=== PATIENT | female | born 1950 | race Caucasian/White ===

== ENCOUNTER 2020-09-18 10:34 | Inpatient (IN) | payer MEDICARE, BC ==
[2020-09-18] MEDS ORDERED: Insulin Regular, Human 100 Units/ML 3 ML Vial SUBCUT SCH (17:00)
[2020-09-18] MEDS ORDERED: Glucagon,Human Recombinant 1 MG Vial IM PRN ×3 (17:11→19:48)
[2020-09-18] MEDS ORDERED: 50% Dextrose in Water 50 ML Syringe IV PRN ×3 (17:11→19:48)
[2020-09-18] MEDS: buPROPion 150 MG Tab.SR PO SCH (20:19)
[2020-09-18] MEDS: Pregabalin 50 MG Cap PO SCH (20:20)
[2020-09-18] MEDS: Amitriptyline 25 MG Tab PO SCH (20:20)
[2020-09-18] MEDS: Pregabalin 100 MG Cap PO SCH (20:20)
[2020-09-18] MEDS: Simvastatin 40 MG Tab PO SCH (20:20)
[2020-09-19] MEDS: Levothyroxine 50 MCG Tab PO SCH (06:54)
[2020-09-19] MEDS ORDERED: Insulin Regular, Human 100 Units/ML 3 ML Vial SUBCUT SCH ×2 (07:00→11:30)
[2020-09-19] MEDS: Pregabalin 50 MG Cap PO SCH ×3 (07:51→19:15)
[2020-09-19] MEDS: Pregabalin 100 MG Cap PO SCH ×3 (07:51→19:15)
[2020-09-19] MEDS: Citalopram 10 MG Tab PO SCH (07:52)
[2020-09-19] MEDS: Aspirin 325 MG Tab PO SCH (07:52)
[2020-09-19] MEDS: buPROPion 150 MG Tab.SR PO SCH ×2 (07:52→19:14)
[2020-09-19] MEDS: Metoprolol Succinate 25 MG Tab.ER PO SCH (07:52)
[2020-09-19] MEDS: Fenofibrate 160 MG Tab PO SCH (07:52)
[2020-09-19] MEDS: Docusate Sodium 100 MG Cap PO SCH (07:52)
[2020-09-19] MEDS: Mupirocin Oint 22 GM Tube TOP SCH (07:53)
[2020-09-19] MEDS: SEMAGLUTIDE 2 MG/1.5 ML SUBCUT SCH (08:19)
[2020-09-19] MEDS: Insulin Lispro 100 Units/ML 3 ML Vial SUBCUT SCH ×7 (08:35→17:02)
[2020-09-19] MEDS: Insulin Glarg,Human.Rec.Analog 100 Unit/ML SUBCUT SCH (08:37)
--- NOTE | 2020-09-19 10:21 | HP ---
CHIEF COMPLAINT: 1. Uncontrolled diabetes. 2. Weakness. HISTORY: The patient is a 70-year-old female from the [facility] who comes to us for swing bed admission. She was admitted to [facility] with stage 3 chronic kidney disease with acute renal failure, uncontrolled diabetes and frequent falls. She was just getting weaker at home and ultimately she was admitted and given fluids to rebound her kidneys and sliding scale insulin controlled her diabetes. She is still very weak and unable to care for herself and she presents to [facility] for swing bed placement as her daughter, Michelle , is a nurse, works here. She apparently had an uneventful hospital course. She has been noncompliant with some of her Humalog and she takes significant amounts of insulin. PAST MEDICAL HISTORY: Includes a history of coronary artery disease; type 2 diabetes requiring insulin; history of diabetic peripheral neuropathy. She has a history of some mild dementia, hypothyroidism, hypertension and hyperlipidemia. PAST SURGICAL HISTORY: Includes an appendectomy, hysterectomy with oophorectomy. ALLERGIES: TO LISINOPRIL. CURRENT MEDICATIONS: See list. SOCIAL HISTORY: She is a nonsmoker, nondrinker. FAMILY HISTORY: Reviewed in the chart. Includes a history of diabetes in multiple family members. Her father had esophageal cancer. There is a strong family history of hypertension and heart disease. PHYSICAL EXAMINATION: GENERAL: The patient is lying in her bed. She is pleasant, alert and cooperative. Appears in no distress. HEENT: Grossly benign. NECK: Her neck appears supple. Veins are flat. LUNGS: Lung sounds appear clear in all guerin. CARDIAC: Tones are regular. ABDOMEN: Soft and nontender. EXTREMITIES: No peripheral edema is seen. Pulses are palpable. ASSESSMENT: 1. ACUTE SUPERIMPOSED ON CHRONIC RENAL FAILURE, STAGE 3, IMPROVED. 2. TYPE 2 DIABETES, REQUIRING INSULIN. 3. HYPERTENSION. 4. HYPERLIPIDEMIA. 5. HISTORY OF CORONARY ARTERY DISEASE. 6. DIABETIC PERIPHERAL NEUROPATHY. 7. FALLS AT HOME. 8. WEAKNESS. PLAN: Paola will be managed with physical therapy, sliding scale insulin for now and we will keep a close eye on her sugars and titrate appropriately. No other med changes. LM/MODL /[id number]
[2020-09-19] MEDS: Simvastatin 40 MG Tab PO SCH (19:15)
[2020-09-19] MEDS: Amitriptyline 25 MG Tab PO SCH (19:15)
[2020-09-19] MEDS ORDERED: Insulin Lispro 100 Units/ML 3 ML Vial SUBCUT STA (22:17)
[2020-09-20] MEDS: Levothyroxine 50 MCG Tab PO SCH (06:43)
[2020-09-20] MEDS: Citalopram 10 MG Tab PO SCH (07:29)
[2020-09-20] MEDS: Aspirin 325 MG Tab PO SCH (07:29)
[2020-09-20] MEDS: buPROPion 150 MG Tab.SR PO SCH ×2 (07:30→19:36)
[2020-09-20] MEDS: Metoprolol Succinate 25 MG Tab.ER PO SCH (07:30)
[2020-09-20] MEDS: Pregabalin 50 MG Cap PO SCH ×3 (07:30→19:36)
[2020-09-20] MEDS: Pregabalin 100 MG Cap PO SCH ×3 (07:30→19:36)
[2020-09-20] MEDS: Fenofibrate 160 MG Tab PO SCH (07:30)
[2020-09-20] MEDS: Docusate Sodium 100 MG Cap PO SCH (07:30)
[2020-09-20] MEDS: Insulin Glarg,Human.Rec.Analog 100 Unit/ML SUBCUT SCH (07:32)
[2020-09-20] MEDS: Insulin Lispro 100 Units/ML 3 ML Vial SUBCUT SCH ×6 (07:34→17:23)
[2020-09-20] MEDS: Mupirocin Oint 22 GM Tube TOP SCH (14:07)
[2020-09-20] MEDS: Amitriptyline 25 MG Tab PO SCH (19:35)
[2020-09-20] MEDS: Simvastatin 40 MG Tab PO SCH (19:36)
[2020-09-21] MEDS: buPROPion 150 MG Tab.SR PO SCH ×2 (07:22→19:33)
[2020-09-21] MEDS: Fenofibrate 160 MG Tab PO SCH (07:22)
[2020-09-21] MEDS: Aspirin 325 MG Tab PO SCH (07:22)
[2020-09-21] MEDS: Docusate Sodium 100 MG Cap PO SCH (07:22)
[2020-09-21] MEDS: Levothyroxine 50 MCG Tab PO SCH (07:22)
[2020-09-21] MEDS: Pregabalin 50 MG Cap PO SCH ×3 (07:23→19:33)
[2020-09-21] MEDS: Insulin Glarg,Human.Rec.Analog 100 Unit/ML SUBCUT SCH (07:23)
[2020-09-21] MEDS: Metoprolol Succinate 25 MG Tab.ER PO SCH (07:23)
[2020-09-21] MEDS: Citalopram 10 MG Tab PO SCH (07:23)
[2020-09-21] MEDS: Insulin Lispro 100 Units/ML 3 ML Vial SUBCUT SCH ×6 (07:25→17:04)
[2020-09-21] MEDS: Pregabalin 100 MG Cap PO SCH ×3 (07:28→19:33)
[2020-09-21] MEDS: Simvastatin 40 MG Tab PO SCH (19:33)
[2020-09-21] MEDS: Amitriptyline 25 MG Tab PO SCH (19:33)
[2020-09-22] MEDS: Levothyroxine 50 MCG Tab PO SCH (06:51)
[2020-09-22] MEDS: Docusate Sodium 100 MG Cap PO SCH (07:26)
[2020-09-22] MEDS: Pregabalin 100 MG Cap PO SCH ×3 (07:26→19:52)
[2020-09-22] MEDS: Fenofibrate 160 MG Tab PO SCH (07:26)
[2020-09-22] MEDS: Metoprolol Succinate 25 MG Tab.ER PO SCH (07:26)
[2020-09-22] MEDS: Pregabalin 50 MG Cap PO SCH ×3 (07:26→19:52)
[2020-09-22] MEDS: Citalopram 10 MG Tab PO SCH (07:26)
[2020-09-22] MEDS: buPROPion 150 MG Tab.SR PO SCH ×2 (07:26→19:53)
[2020-09-22] MEDS: Aspirin 325 MG Tab PO SCH (07:26)
[2020-09-22] MEDS: Insulin Glarg,Human.Rec.Analog 100 Unit/ML SUBCUT SCH ×2 (07:27→19:54)
[2020-09-22] MEDS: Insulin Lispro 100 Units/ML 3 ML Vial SUBCUT SCH ×6 (07:28→17:30)
[2020-09-22] MEDS: ICOSAPENT ETHYL 1 GM PO SCH (19:48)
[2020-09-22] MEDS: Amitriptyline 25 MG Tab PO SCH (19:52)
[2020-09-22] MEDS: Simvastatin 40 MG Tab PO SCH (19:53)
[2020-09-23] MEDS: Levothyroxine 50 MCG Tab PO SCH (06:03)
[2020-09-23] MEDS: Metoprolol Succinate 25 MG Tab.ER PO SCH (07:34)
[2020-09-23] MEDS: Citalopram 10 MG Tab PO SCH (07:35)
[2020-09-23] MEDS: Docusate Sodium 100 MG Cap PO SCH (07:35)
[2020-09-23] MEDS: Fenofibrate 160 MG Tab PO SCH (07:35)
[2020-09-23] MEDS: Pregabalin 100 MG Cap PO SCH ×3 (07:35→19:46)
[2020-09-23] MEDS: Pregabalin 50 MG Cap PO SCH ×3 (07:35→19:47)
[2020-09-23] MEDS: buPROPion 150 MG Tab.SR PO SCH ×2 (07:35→19:47)
[2020-09-23] MEDS: ICOSAPENT ETHYL 1 GM PO SCH ×2 (07:35→19:46)
[2020-09-23] MEDS: Aspirin 325 MG Tab PO SCH (07:35)
[2020-09-23] MEDS: Insulin Glarg,Human.Rec.Analog 100 Unit/ML SUBCUT SCH (07:36)
[2020-09-23] MEDS: Insulin Lispro 100 Units/ML 3 ML Vial SUBCUT SCH ×7 (07:38→20:37)
--- NOTE | 2020-09-23 10:23 | PCM.SN.2 ---
- Free Text/Narrative Note: Reviewed patients previous diabetic medications. Blood sugars have been significantly elevated. She is noncompliant with diet and has made trips to the pop/candy machine. Will switch patient back to previous dosing of Toujeo and Novalog. Will start with 80 units BID of Toujeo and 40 units Humalog TID. Will also add in bedtime dose of SSI. Patient's daughter will be bringing patients Toujeo from home. Was previously on ~70 units TID with meals of Novolog. Will increase Humalog as needed the next few days in attempt to better manage blood glucose.
[2020-09-23] MEDS: Amitriptyline 25 MG Tab PO SCH (19:46)
[2020-09-23] MEDS: Simvastatin 40 MG Tab PO SCH (19:47)
[2020-09-23] MEDS: TOUJEO 300 UNIT/ML SUBCUT SCH (20:35)
[2020-09-24] MEDS: Levothyroxine 50 MCG Tab PO SCH (06:11)
[2020-09-24] MEDS: Pregabalin 100 MG Cap PO SCH ×3 (07:48→19:40)
[2020-09-24] MEDS: Pregabalin 50 MG Cap PO SCH ×3 (07:48→19:41)
[2020-09-24] MEDS: Aspirin 325 MG Tab PO SCH (07:48)
[2020-09-24] MEDS: Fenofibrate 160 MG Tab PO SCH (07:48)
[2020-09-24] MEDS: Docusate Sodium 100 MG Cap PO SCH (07:48)
[2020-09-24] MEDS: Citalopram 10 MG Tab PO SCH (07:48)
[2020-09-24] MEDS: buPROPion 150 MG Tab.SR PO SCH ×2 (07:48→19:40)
[2020-09-24] MEDS: Metoprolol Succinate 25 MG Tab.ER PO SCH (07:48)
[2020-09-24] MEDS: ICOSAPENT ETHYL 1 GM PO SCH ×2 (07:49→19:41)
[2020-09-24] MEDS: Insulin Lispro 100 Units/ML 3 ML Vial SUBCUT SCH ×7 (07:50→20:32)
[2020-09-24] MEDS: TOUJEO 300 UNIT/ML SUBCUT SCH ×2 (07:51→20:31)
[2020-09-24] MEDS: Amitriptyline 25 MG Tab PO SCH (19:41)
[2020-09-24] MEDS: Simvastatin 40 MG Tab PO SCH (19:41)
[2020-09-25] MEDS: Levothyroxine 50 MCG Tab PO SCH (06:48)
[2020-09-25] MEDS: Aspirin 325 MG Tab PO SCH (07:33)
[2020-09-25] MEDS: Pregabalin 100 MG Cap PO SCH ×3 (07:33→19:09)
[2020-09-25] MEDS: Fenofibrate 160 MG Tab PO SCH (07:34)
[2020-09-25] MEDS: Citalopram 10 MG Tab PO SCH (07:34)
[2020-09-25] MEDS: Metoprolol Succinate 25 MG Tab.ER PO SCH (07:34)
[2020-09-25] MEDS: buPROPion 150 MG Tab.SR PO SCH ×2 (07:34→19:09)
[2020-09-25] MEDS: Pregabalin 50 MG Cap PO SCH ×3 (07:34→19:09)
[2020-09-25] MEDS: ICOSAPENT ETHYL 1 GM PO SCH ×2 (07:37→20:43)
[2020-09-25] MEDS: Docusate Sodium 100 MG Cap PO SCH (07:37)
[2020-09-25] MEDS: Insulin Lispro 100 Units/ML 3 ML Vial SUBCUT SCH ×7 (07:39→20:48)
[2020-09-25] MEDS: TOUJEO 300 UNIT/ML SUBCUT SCH ×2 (07:39→20:45)
--- NOTE | 2020-09-25 10:11 | PCM.SN.2 ---
- Free Text/Narrative Note: Discussed blood sugars with patient. Consulted with Brunilda, inclusion special educator, who recommended increasing sliding scale insulin in attempt to get better coverage. At this time, we will increase her TID Humalog dose to 55 units, as she has continued to have blood sugars 300-450. Will also increase her SSI based off net architect recommendations. Patient is discouraged as sugars continue to be elevated. Plan to keep patient swing bed throughout weekend in attempt to better manage blood sugars. She will also continue to work with PT in regards to her weakness, but that seems to be improving. Patient is agreeable with this plan.
[2020-09-25] MEDS: Simvastatin 40 MG Tab PO SCH (19:09)
[2020-09-25] MEDS: Amitriptyline 25 MG Tab PO SCH (19:09)
[2020-09-26] MEDS: Levothyroxine 50 MCG Tab PO SCH (06:07)
[2020-09-26] MEDS: buPROPion 150 MG Tab.SR PO SCH ×2 (07:43→21:00)
[2020-09-26] MEDS: Docusate Sodium 100 MG Cap PO SCH (07:43)
[2020-09-26] MEDS: Pregabalin 50 MG Cap PO SCH ×3 (07:43→21:00)
[2020-09-26] MEDS: Pregabalin 100 MG Cap PO SCH ×3 (07:43→21:00)
[2020-09-26] MEDS: Fenofibrate 160 MG Tab PO SCH (07:43)
[2020-09-26] MEDS: Citalopram 10 MG Tab PO SCH (07:43)
[2020-09-26] MEDS: ICOSAPENT ETHYL 1 GM PO SCH ×2 (07:44→21:01)
[2020-09-26] MEDS: Metoprolol Succinate 25 MG Tab.ER PO SCH (07:44)
[2020-09-26] MEDS: TOUJEO 300 UNIT/ML SUBCUT SCH ×2 (07:46→21:03)
[2020-09-26] MEDS: Insulin Lispro 100 Units/ML 3 ML Vial SUBCUT SCH ×7 (07:49→22:03)
[2020-09-26] MEDS: Aspirin 81 MG Tab.EC PO SCH (07:50)
[2020-09-26] MEDS: SEMAGLUTIDE 2 MG/1.5 ML SUBCUT SCH (07:55)
[2020-09-26] MEDS: Amitriptyline 25 MG Tab PO SCH (21:00)
[2020-09-26] MEDS: Simvastatin 40 MG Tab PO SCH (21:00)
[2020-09-27] MEDS: Levothyroxine 50 MCG Tab PO SCH (08:08)
[2020-09-27] MEDS: Docusate Sodium 100 MG Cap PO SCH (08:08)
[2020-09-27] MEDS: Pregabalin 100 MG Cap PO SCH ×3 (08:08→19:42)
[2020-09-27] MEDS: Citalopram 10 MG Tab PO SCH (08:11)
[2020-09-27] MEDS: Pregabalin 50 MG Cap PO SCH ×3 (08:11→19:42)
[2020-09-27] MEDS: buPROPion 150 MG Tab.SR PO SCH ×2 (08:11→19:42)
[2020-09-27] MEDS: Metoprolol Succinate 25 MG Tab.ER PO SCH (08:11)
[2020-09-27] MEDS: Fenofibrate 160 MG Tab PO SCH (08:12)
[2020-09-27] MEDS: Aspirin 81 MG Tab.EC PO SCH (08:12)
[2020-09-27] MEDS: Insulin Lispro 100 Units/ML 3 ML Vial SUBCUT SCH ×7 (08:17→20:25)
[2020-09-27] MEDS: ICOSAPENT ETHYL 1 GM PO SCH ×2 (08:20→19:42)
[2020-09-27] MEDS: TOUJEO 300 UNIT/ML SUBCUT SCH ×2 (08:21→19:43)
[2020-09-27] MEDS: Simvastatin 40 MG Tab PO SCH (19:42)
[2020-09-27] MEDS: Amitriptyline 25 MG Tab PO SCH (19:42)
[2020-09-28] MEDS: Fenofibrate 160 MG Tab PO SCH (08:01)
[2020-09-28] MEDS: ICOSAPENT ETHYL 1 GM PO SCH ×2 (08:01→19:49)
[2020-09-28] MEDS: Citalopram 10 MG Tab PO SCH (08:01)
[2020-09-28] MEDS: Levothyroxine 50 MCG Tab PO SCH (08:01)
[2020-09-28] MEDS: Aspirin 81 MG Tab.EC PO SCH (08:01)
[2020-09-28] MEDS: buPROPion 150 MG Tab.SR PO SCH ×2 (08:01→19:48)
[2020-09-28] MEDS: Docusate Sodium 100 MG Cap PO SCH (08:01)
[2020-09-28] MEDS: Metoprolol Succinate 25 MG Tab.ER PO SCH (08:01)
[2020-09-28] MEDS: Pregabalin 100 MG Cap PO SCH ×3 (08:01→19:48)
[2020-09-28] MEDS: Pregabalin 50 MG Cap PO SCH ×3 (08:01→19:48)
[2020-09-28] MEDS: Insulin Lispro 100 Units/ML 3 ML Vial SUBCUT SCH ×7 (08:03→21:06)
[2020-09-28] MEDS: TOUJEO 300 UNIT/ML SUBCUT SCH ×2 (08:05→19:48)
[2020-09-28] MEDS: Amitriptyline 25 MG Tab PO SCH (19:48)
[2020-09-28] MEDS: Simvastatin 40 MG Tab PO SCH (19:48)
[2020-09-29] MEDS: Fenofibrate 160 MG Tab PO SCH (07:49)
[2020-09-29] MEDS: Pregabalin 100 MG Cap PO SCH (07:49)
[2020-09-29] MEDS: Pregabalin 50 MG Cap PO SCH (07:49)
[2020-09-29] MEDS: Aspirin 81 MG Tab.EC PO SCH (07:49)
[2020-09-29] MEDS: buPROPion 150 MG Tab.SR PO SCH (07:49)
[2020-09-29] MEDS: Docusate Sodium 100 MG Cap PO SCH (07:49)
[2020-09-29] MEDS: Citalopram 10 MG Tab PO SCH (07:50)
[2020-09-29] MEDS: Metoprolol Succinate 25 MG Tab.ER PO SCH (07:50)
[2020-09-29] MEDS: Levothyroxine 50 MCG Tab PO SCH (07:50)
[2020-09-29] MEDS: ICOSAPENT ETHYL 1 GM PO SCH (07:53)
[2020-09-29] MEDS: Insulin Lispro 100 Units/ML 3 ML Vial SUBCUT SCH ×2 (07:55→07:56)
[2020-09-29] MEDS: TOUJEO 300 UNIT/ML SUBCUT SCH (08:04)
--- NOTE | 2020-09-29 08:50 | PCM.DCSUM1 ---
Discharge Summary - Hospital Course Free Text/Narrative:: Paola is a 70 yo female who was admitted to swing bed 09/18/2020 for uncontrolled diabetes and weakness. She had been admitted to [facility] with stage 3 CKD with acute exacerbation, uncontrolled diabetes, and frequent falls and was subsequently admitted here for ongoing therapy and diabetes management. SHe is from the [place] area, but her daughter works as a nurse here so requested admit here. She worked with PT throughout her swing bed stay and strength did improve. At time of discharge she was still requiring use of cane on occasion. She was ambulating without difficulty. Gait unsteady at times. Blood glucose was very difficult to manage throughout stay. Patient continued to snack frequently and make trips to the vending machine. We opted to restart her Toujeo at previous dosing of 80 BID. Initially patient was started on 40 units TID of Humalog as well as SSI. Blood glucose continued to run in 400-500s. Humalog was increased to 55 units TID and we increased her SSI to higher dose, including bedtime dose. Initially patient's blood glucose was slightly more controlled 200-300s, but then again the last few days was in the 400s. We did opt to then increase her Humalog to 70 units TID with additional SSI QID. Unfortunately, patient was meeting PT requirements and there was no need to keep her swing bed status despite inability to adequately manage blood glucose. This has been a chronic issue for patient. We did consult with software educator/vacuum caster who recommended increasing SSI. Adjustments were made based off her recommendations. She will be discharged home on 80 units Toujeo BID, 70 units Novolog TID, and SSI QID AC&Bedtime. She will continue her Ozempic weekly. She is advised to follow up at earliest appointment with caul puller as well as see her PCP next week for further adjustments/management of her blood glucose. She will be discharged home with home health. retirement for monitoring and treatment of her uncontrolled diabetes. PT for evaluation/treatment of her unsteady gait. She is a high fall risk. Patient will be transported home per daughter. She is discharged home in satisfactory condition. - Discharge Data Discharge Date: 09/29/20 Discharge Disposition: Home, W Home Health Agency 06 Condition: Good - Referral to Home Health Date of Face to Face Encounter: 09/29/20 Reason for Homebound Status: Patient has had significantly elevated blood glucose. She will not be driving during duration of home health services. She has unsteady gait and requires assistance in/out of vehicle etc, [facility] to her at this time in her hometown. Primary Care Physician: PCP Not In Area Skilled Need: Residential to assist with diabetes monitoring/treatment. She requires close monitoring of her blood glucose. She is on high doses of insulin. She also may require PT for strengthening as she has unsteady gait and is high fall risk. - Discharge Diagnosis/Problem(s) (1) Weakness generalized SNOMED Code(s): 49385579 ICD Code: R53.1 - WEAKNESS Status: Acute (2) Uncontrolled diabetes mellitus SNOMED Code(s): 86020463, 174958801 ICD Code: E11.65 - TYPE 2 DIABETES MELLITUS WITH HYPERGLYCEMIA Status: Acute Qualifiers: Diabetes mellitus type: type 2 Glycemic state: with hyperglycemia Qualified Code(s): E11.65 - Type 2 diabetes mellitus with hyperglycemia - Patient Summary/Data Consults: Consultations 09/18/20 17:06 PT Evaluation and Treatment [CONS] Routine 09/23/20 09:30 Consult to Gear Inspector [Consult to Diabetic Nurse Specialist] [CONS] Routine - Patient Instructions Diet: Diabetic Diet Activity: As Tolerated - Discharge Plan *PRESCRIPTION DRUG MONITORING PROGRAM REVIEWED*: Not Applicable *COPY OF PRESCRIPTION DRUG MONITORING REPORT IN PATIENT BONY: Not Applicable Prescriptions/Med Rec: Aspirin [Halfprin] 81 mg PO DAILY #90 tab.ec Insulin Aspart [NovoLOG] 70 unit SUBCUT TID #3 pen Insulin Aspart [NovoLOG] See Protocol SUBCUT WITHMEALSANDBED #3 pen Insulin Glargine,Hum.Rec.Anlog [T[place]mith Solostar] 80 unit SQ BID #3 insuln.pen Home Medications: Home Meds Amitriptyline [Elavil] 25 mg PO BEDTIME 09/18/20 [History] Ammonium Lactate 1 applic TOP BID 09/18/20 [History] Betamethasone/Clotrimazole [Lotrisone] 1 applic TOP BID PRN 09/18/20 [History] Citalopram [Citalopram HBr] 20 mg PO DAILY 09/18/20 [History] Docusate Sodium 100 mg PO DAILY 09/18/20 [History] Fenofibrate Nanocrystallized [Fenofibrate] 145 mg PO DAILY 09/18/20 [History] Icosapent Ethyl [Vascepa] 2,000 mg PO BID 09/18/20 [History] Levothyroxine 75 mcg PO ACBREAKFAST 09/18/20 [History] Metoprolol Succinate 25 mg PO DAILY 09/18/20 [History] Mupirocin 1 applic TOP DAILY 09/18/20 [History] Pregabalin 1 tab PO TID 09/18/20 [History] Rosuvastatin [Crestor] 1 tab PO DAILY 09/18/20 [History] Semaglutide [Ozempic] 2 mg SQ WEEKLY 09/18/20 [History] buPROPion [Wellbutrin SR] 150 mg PO BID 09/18/20 [History] Aspirin [Halfprin] 81 mg PO DAILY #90 tab.ec 09/29/20 [Rx] Insulin Aspart [NovoLOG] 70 unit SUBCUT TID #3 pen 09/29/20 [Rx] Insulin Aspart [NovoLOG] See Protocol SUBCUT WITHMEALSANDBED #3 pen 09/29/20 [Rx] Insulin Glargine,Hum.Rec.Anlog [Toujeo Solostar] 80 unit SQ BID #3 insuln.pen 09/29/20 [Rx] Patient Handouts: Insulin Treatment for Diabetes Mellitus, Hyperglycemia, [id number], Correction Insulin Referrals: Irving Greenberg MD [Ordering Only Provider] - - Discharge Summary/Plan Comment DC Time >30 min.: Yes - General Info Date of Service: 09/29/20 Admission Dx/Problem (Free Text: Uncontrolled diabetes mellitus Generalized weakness Subjective Update: Patient reports she is feeling well this morning. No complaints. SHe is anxious to leave, but reports it has been easy being here and she would love to stay. Functional Status: Reports: Pain Controlled, Tolerating Diet, Ambulating, Urinating. Denies: New Symptoms - Review of Systems General: Reports: Weakness HEENT: Reports: No Symptoms Pulmonary: Reports: No Symptoms Cardiovascular: Reports: No Symptoms Gastrointestinal: Reports: No Symptoms Genitourinary: Reports: No Symptoms Musculoskeletal: Reports: No Symptoms Skin: Reports: No Symptoms Neurological: Reports: No Symptoms Psychiatric: Reports: No Symptoms - Patient Data Vitals - Most Recent: Last Vital Signs Temp 97 F 09/29/20 08:00 Pulse 60 09/29/20 08:00 Resp 18 09/29/20 08:00 BP 109/44 L 09/29/20 08:00 Pulse Ox 94 L 09/29/20 08:00 Weight - Most Recent: 167 lb 4.8 oz Lab Results - Last 24 hrs: Laboratory Results - last 24 hr 09/28/20 09/28/20 09/28/20 Range/Units 11:41 17:40 21:02 POC Glucose 267 H 404 H* 449 H* (75-105) mg/dl 09/29/20 Range/Units 07:46 POC Glucose 416 H* (75-105) mg/dl Med Orders - Current: Current Medications Amitriptyline HCl (Elavil) 25 mg PO BEDTIME [facility] Last Admin: 09/28/20 19:48 Dose: 25 mg Documented by: Aspirin (Halfprin) 81 mg PO DAILY [facility] Last Admin: 09/29/20 07:49 Dose: 81 mg Documented by: Bupropion HCl (Wellbutrin Sr) 150 mg PO BID [facility] Last Admin: 09/29/20 07:49 Dose: 150 mg Documented by: Citalopram Hydrobromide (Celexa) 20 mg PO DAILY [facility] Last Admin: 09/29/20 07:50 Dose: 20 mg Documented by: Dextrose/Water (Dextrose 50% In Water) 50 ml IV ASDIRECTED PRN PRN Reason: Hypoglycemia Docusate Sodium (Colace) 100 mg PO DAILY [facility] Last Admin: 09/29/20 07:49 Dose: 100 mg Documented by: Fenofibrate (Fenofibrate) 160 mg PO DAILY [facility] Last Admin: 09/29/20 07:49 Dose: 160 mg Documented by: Glucagon (Glucagen) 1 mg IM ASDIRECTED PRN PRN Reason: Hypoglycemia Insulin Human Lispro (Humalog) 0 unit SUBCUT WITHMEALSANDBED [facility]; Protocol Last Admin: 09/29/20 07:55 Dose: 26 units Documented by: Insulin Human Lispro (Humalog) 55 unit SUBCUT TIDMEALS [facility] Last Admin: 09/29/20 07:56 Dose: 55 units Documented by: Levothyroxine Sodium (Synthroid) 75 mcg PO ACBREAKFAST [facility] Last Admin: 09/29/20 07:50 Dose: 75 mcg Documented by: Metoprolol Succinate (Toprol Xl) 25 mg PO DAILY [facility] Last Admin: 09/29/20 07:50 Dose: 25 mg Documented by: Semaglutide [Ozempic (] 2mg/1.5ml Ptom) 0 mg SUBCUT Q7D [facility] Last Admin: 09/26/20 07:55 Dose: 1 mg Documented by: Icosapent Ethyl [ Vascepa] 1 Gm Capsule Ptom 0 mg PO BID [facility] Last Admin: 09/29/20 07:53 Dose: 2 mg Documented by: Leslye Hall 300 (Unit/Ml Ptom) 0 each SUBCUT BID [facility] Last Admin: 09/29/20 08:04 Dose: 1 each Documented by: Pregabalin (Lyrica) 100 mg PO TID [facility] Last Admin: 09/29/20 07:49 Dose: 100 mg Documented by: Pregabalin (Lyrica) 50 mg PO TID [facility] Last Admin: 09/29/20 07:49 Dose: 50 mg Documented by: Simvastatin (Zocor) 40 mg PO BEDTIME [facility] Last Admin: 09/28/20 19:48 Dose: 40 mg Documented by: Discontinued Medications Aspirin (Aspirin) 325 mg PO DAILY [facility] Last Admin: 09/25/20 07:33 Dose: 325 mg Documented by: Dextrose/Water (Dextrose 50% In Water) 50 ml IV ASDIRECTED PRN PRN Reason: Hypoglycemia Dextrose/Water (Dextrose 50% In Water) 50 ml IV ASDIRECTED PRN PRN Reason: Hypoglycemia Glucagon (Glucagen) 1 mg IM ASDIRECTED PRN PRN Reason: Hypoglycemia Glucagon (Glucagen) 1 mg IM ASDIRECTED PRN PRN Reason: Hypoglycemia Insulin Glargine (Lantus) 60 unit SUBCUT DAILY [facility] Last Admin: 09/20/20 07:32 Dose: 60 units Documented by: Insulin Glargine (Lantus) 70 unit SUBCUT DAILY [facility] Last Admin: 09/22/20 07:27 Dose: 70 units Documented by: Insulin Glargine (Lantus) 40 unit SUBCUT BID [facility] Last Admin: 09/23/20 07:36 Dose: 40 units Documented by: Insulin Human Lispro (Humalog) 12 unit SUBCUT TIDMEALS [facility] Last Admin: 09/20/20 11:55 Dose: 12 units Documented by: Insulin Human Lispro (Humalog) 0 unit SUBCUT TIDMEALS [facility]; Protocol Last Admin: 09/23/20 07:38 Dose: 15 units Documented by: Insulin Human Lispro (Humalog) 10 unit SUBCUT STAT STA Stop: 09/19/20 22:18 Last Admin: 09/19/20 22:28 Dose: 10 units Documented by: Insulin Human Lispro (Humalog) 14 unit SUBCUT TIDMEALS [facility] Last Admin: 09/23/20 07:38 Dose: 14 units Documented by: Insulin Human Lispro (Humalog) 40 unit SUBCUT TIDMEALS [facility] Last Admin: 09/25/20 07:39 Dose: 40 units Documented by: Insulin Human Regular (Humulin R) 80 unit SUBCUT ACDINNER [facility] Last Admin: 09/18/20 18:00 Dose: 80 units Documented by: Insulin Human Regular (Humulin R) 80 unit SUBCUT ACLUNCH [facility] Insulin Human Regular (Humulin R) 100 unit SUBCUT ACBREAKFAST [facility] Mupirocin (Bactroban Oint) 0 gm TOP DAILY [facility] Last Admin: 09/20/20 14:07 Dose: Not Given Documented by: - Exam Quality Assessment: Reports: DVT Prophylaxis General: Reports: Alert, Oriented, No Acute Distress Neck: Reports: Supple Lungs: Reports: Clear to Auscultation, Normal Respiratory Effort Cardiovascular: Reports: Regular Rate, Regular Rhythm GI/Abdominal Exam: Normal Bowel Sounds, Soft, Non-Tender, No Organomegaly, No Distention, No Abnormal Bruit, No Mass, Pelvis Stable Back Exam: Reports: Normal Inspection, Full Range of Motion Extremities: Normal Inspection, Normal Range of Motion, Non-Tender, No Pedal Edema, Normal Capillary Refill Skin: Reports: Warm, Dry, Intact Neurological: Reports: No New Focal Deficit Psy/Mental Status: Reports: Alert, Normal Affect, Normal Mood
== END 2020-09-29 10:20 | disposition home health service (06) | DRG 638 ==
LOC: CC.MS 14:46 → UNDOADMIN 14:46 → CC.MS 17:06
PROVIDERS: ADMIT Family Medicine; ATTEND Family Medicine
DX: E11.65 Type 2 diabetes mellitus with hyperglycemia (principal); N17.9 Acute kidney failure, unspecified; R53.1 Weakness; E11.22 Type 2 diabetes mellitus with diabetic chronic kidney disease; N18.30 Chronic kidney disease, stage 3 unspecified; R29.6 Repeated falls; Z79.4 Long term (current) use of insulin; Z79.899 Other long term (current) drug therapy; Z79.890 Hormone replacement therapy; Z90.710 Acquired absence of both cervix and uterus; Z90.49 Acquired absence of other specified parts of digestive tract; Z88.8 Allergy status to other drugs, medicaments and biological substances; I25.10 Atherosclerotic heart disease of native coronary artery without angina pectoris; I12.9 Hypertensive chronic kidney disease with stage 1 through stage 4 chronic kidney disease, or unspecified chronic kidney disease; E78.5 Hyperlipidemia, unspecified; E11.42 Type 2 diabetes mellitus with diabetic polyneuropathy
CPT/HCPCS: 36415; 80048; 82947; 82962; 85025; 97110-GP; 97112-GP; 97161-GP; 97530-GP; A9270-GY; J1815-GY

== ENCOUNTER 2020-12-27 11:10 | Observation (INO) | payer MEDICARE, BC ==
[2020-12-27] MEDS ORDERED: Sodium Chloride 0.9% 1,000 ML IV ONE ×2 (11:37→13:42)
[2020-12-27] MEDS ORDERED: Ondansetron 4 MG/2 ML SDV IVPUSH STA (11:37)
--- NOTE | 2020-12-27 11:37 | EDM.PDOC ---
ED HPI GENERAL MEDICAL PROBLEM - General Chief Complaint: Gastrointestinal Problem Stated Complaint: N/V Time Seen by Provider: 12/27/20 11:37 Source of Information: Reports: Patient, Family History Limitations: Reports: No Limitations - History of Present Illness INITIAL COMMENTS - FREE TEXT/NARRATIVE: This patient is a 70 year old female that presents to the ER. Patient reports that yesterday she began to feel weak. Then, last night night over night she had vomited x2. Patient reports that then she was having some diarrhea unknown amount of episodes. Patient reports she wanted daughter to take her to get pepto bismul thinking it may help. Patient reports abdominal pain all over. Patient has history of uncontrolled diabetes. Patient reports that she feels weak and dizziness with positional changes. Patient lives in [place], daughter picked her up yesterday to bring her to visit. The daughter reports the patient wanted her to stop yesterday for pepto too. The patient reports she was feeling fine yesterday other than weak. The patient has a grandaughter that she saw yesterday and stayed with last night. The granddaughter had stomach bug with vomiting and diarrhea. Onset Date: 12/26/20 Quality: Reports: Ache Severity: Moderate Improves with: Reports: None Worsens with: Reports: None Associated Symptoms: Reports: Diaphoresis, Loss of Appetite, Malaise, Nausea/Vomiting, Weakness. Denies: Confusion, Chest Pain, Cough, cough w sputum, Fever/Chills, Headaches, Rash, Seizure, Shortness of Breath, Syncope - Related Data Allergies Allergy/AdvReac Type Severity Reaction Status Date / Time lisinopril Allergy Cough Verified 12/27/20 11:23 Home Meds: Home Meds Amitriptyline [Elavil] 25 mg PO BEDTIME 09/18/20 [History] Ammonium Lactate 1 applic TOP BID 09/18/20 [History] Betamethasone/Clotrimazole [Lotrisone] 1 applic TOP BID PRN 09/18/20 [History] Citalopram [Citalopram HBr] 20 mg PO DAILY 09/18/20 [History] Docusate Sodium 100 mg PO DAILY 09/18/20 [History] Fenofibrate Nanocrystallized [Fenofibrate] 145 mg PO DAILY 09/18/20 [History] Levothyroxine 75 mcg PO ACBREAKFAST 09/18/20 [History] Metoprolol Succinate 25 mg PO DAILY 09/18/20 [History] Mupirocin 1 applic TOP DAILY 09/18/20 [History] Pregabalin 1 tab PO TID 09/18/20 [History] Rosuvastatin [Crestor] 1 tab PO DAILY 09/18/20 [History] Semaglutide [Ozempic] 2 mg SQ WEEKLY 09/18/20 [History] buPROPion [Wellbutrin SR] 150 mg PO BID 09/18/20 [History] icosapent ethyL [Vascepa] 2,000 mg PO BID 09/18/20 [History] Aspirin [Halfprin] 81 mg PO DAILY #90 tab.ec 09/29/20 [Rx] Insulin Aspart [NovoLOG] 70 unit SUBCUT TID #3 pen 09/29/20 [Rx] Insulin Aspart [NovoLOG] See Protocol SUBCUT WITHMEALSANDBED #3 pen 09/29/20 [Rx] Insulin Glargine,Hum.Rec.Anlog [Toujeo Solostar] 90 unit SQ BID 12/27/20 [History] Past Medical History Cardiovascular History: Reports: High Cholesterol, Hypertension BOW STAPLER History: Reports: Other (See Below) Other BOW STAPLER History: hysterectomy Psychiatric History: Reports: Depression Endocrine/Metabolic History: Reports: Diabetes, Type II, Hypothyroidism - Past Surgical History GI Surgical History: Reports: Appendectomy Other GI Surgeries/Procedures: ruptured appendix 1999. bowel obstruction Female Surgical History: Reports: Hysterectomy, Oophorectomy Social & Family History - Family History Family Medical History: No Pertinent Family History - Tobacco Use Tobacco Use Status *Q: Never Tobacco User Second Hand Smoke Exposure: No - Caffeine Use Caffeine Use: Reports: None - Recreational Drug Use Recreational Drug Use: No ED ROS GENERAL - Review of Systems Review Of Systems: See Below Constitutional: Reports: Malaise, Weakness, Fatigue, Decreased Appetite HEENT: Reports: No Symptoms Respiratory: Reports: No Symptoms Cardiovascular: Reports: No Symptoms Endocrine: Reports: Low Glucose (100 at home last night. Patient normally 300s. Daughter reports they were able to get it up to 150 last night. Here in ER accucheck is greater than 300.) GI/Abdominal: Reports: Abdominal Pain, Diarrhea, Decreased Appetite, Distension, Nausea, Vomiting : Reports: No Symptoms Musculoskeletal: Reports: No Symptoms Skin: Reports: No Symptoms Neurological: Reports: Dizziness Psychiatric: Reports: No Symptoms Hematologic/Lymphatic: Reports: No Symptoms Immunologic: Reports: No Symptoms ED EXAM, GI/ABD - Physical Exam Exam: See Below Exam Limited By: No Limitations General Appearance: Alert, WD/WN, No Apparent Distress, Obese Eyes: Bilateral: Normal Appearance Ears: Normal External Exam, Normal Canal, Hearing Grossly Normal, Normal TMs Nose: Normal Inspection, Normal Mucosa, No Blood Throat/Mouth: Normal Lips, Normal Teeth, Normal Gums, Normal Oropharynx, Normal Voice, No Airway Compromise, Other (dry mucosa) Head: Atraumatic, Normocephalic Neck: Normal Inspection, Supple, Non-Tender, Full Range of Motion Respiratory/Chest: No Respiratory Distress, Lungs Clear, Normal Breath Sounds, No Accessory Muscle Use Cardiovascular: Normal Peripheral Pulses, Regular Rate, Rhythm (94 on exam), No Edema, No Gallop, No JVD, No Murmur, No Rub GI/Abdominal Exam: No Mass, Pelvis Stable, Distended, Tender (mild diffuse), Abnormal Bowel Sounds (hyperactive). No: Guarding, Rigid, Rebound Back Exam: Normal Inspection, Full Range of Motion. No: CVA Tenderness (L), CVA Tenderness (R) Extremities: Normal Inspection, Normal Range of Motion, Non-Tender, No Pedal Edema, Normal Capillary Refill Neurological: Alert, Oriented, Normal Cognition, Normal Gait, No Motor/Sensory Deficits Psychiatric: Normal Affect, Normal Mood Skin Exam: Warm, Intact, Normal Color, No Rash, Diaphoretic Lymphatic: No Adenopathy Course - Vital Signs Last Recorded V/S: Last Vital Signs Temp 101.9 F H 12/27/20 12:30 Pulse 95 12/27/20 11:12 Resp 22 H 12/27/20 11:12 BP 122/60 12/27/20 11:12 Pulse Ox 97 12/27/20 11:12 - Orders/Labs/Meds Orders: Active Orders 24 hr Category Date Time Status Patient Status Manage Transfer [TRANSFER] Routine ADT 12/27/20 12:38 Active CORONAVIRUS COVID-19 RAPID [MOLEC] Stat Lab 12/27/20 12:15 Ordered CULTURE BLOOD [BC] Stat Lab 12/27/20 12:37 Ordered CULTURE BLOOD [BC] Stat Lab 12/27/20 12:37 Ordered UA W/MICROSCOPIC [URIN] Stat Lab 12/27/20 11:10 Ordered Blood Culture x2 Reflex Set [OM.PC] Stat Oth 12/27/20 12:37 Ordered Resuscitation Status Routine Resus Stat 12/27/20 12:39 Ordered Labs: Laboratory Tests 12/27/20 12/27/20 12/27/20 Range/Units 11:35 11:35 11:35 WBC 6.3 (5.0-10.0) 10^3/uL RBC 4.99 (4.00-5.50) 10^6/uL Hgb 15.0 (12.0-16.0) g/dL Hct 43.8 (37.0-47.0) % MCV 87.8 (82.0-94.0) fL MCH 30.1 (27.0-32.0) pg MCHC 34.2 (33.0-38.0) g/dL RDW Coeff of Arnoldo 14.1 (11.0-15.0) % Plt Count 162 (150-400) 10^3/uL Neut % (Auto) 82.3 (35-85) % Lymph % (Auto) 8.8 L (10-55) % Kemper % (Auto) 8.6 (0-16) % Eos % (Auto) 0.3 (0-5) % Baso % (Auto) 0 (0-3) % Neut # (Auto) 5.15 (1.80-7.00) 10^3/uL Lymph # (Auto) 0.55 L (1.00-4.80) 10^3/uL Kemper # (Auto) 0.54 (0.00-0.80) 10^3/uL Eos # (Auto) 0.02 (0.00-0.45) 10^3/uL Baso # (Auto) 0.00 10^3/uL ABG pH 7.35 (7.35-7.45) ABG pCO2 39 (35-45) mm/Hg0 ABG pO2 19 L (80-100) mm/Hg ABG HCO3 21.6 L (22.0-26.0) mm/L ABG O2 Saturation 28 L (95-98) % ABG Base Excess -4.1 L (-2.0-3.0) O2 Delivery Device Room air Sodium 133 L (136-145) mEq/L Potassium 5.0 (3.5-5.0) mEq/L Chloride 96 L (98-106) mEq/L Carbon Dioxide 22 (21-32) mmol/L BUN 44 H (7-18) mg/dL Creatinine 2.7 H* (0.6-1.0) mg/dL Est Cr Clr Drug Dosing 18.67 mL/min Estimated GFR (MDRD) 18 L (>=60) mL/min Glucose 381 H* D (75-99) mg/dL Lactic Acid (0.4-2.0) mmol/L Calcium 9.0 (8.4-10.1) mg/dL Magnesium 2.3 (1.8-2.4) mg/dL Total Bilirubin 1.1 H (0.0-1.0) mg/dL AST 117 H (15-37) U/L ALT 77 (12-78) U/L Alkaline Phosphatase 213 H (46-116) U/L Total Protein 7.6 (6.4-8.2) g/dL Albumin 3.4 (3.4-5.0) g/dL Amylase 63 (25-115) U/L Lipase 76 (73-393) U/L // Range/Units 11:35 WBC (5.0-10.0) 10^3/uL RBC (4.00-5.50) 10^6/uL Hgb (12.0-16.0) g/dL Hct (37.0-47.0) % MCV (82.0-94.0) fL MCH (27.0-32.0) pg MCHC (33.0-38.0) g/dL RDW Coeff of Arnoldo (11.0-15.0) % Plt Count (150-400) 10^3/uL Neut % (Auto) (35-85) % Lymph % (Auto) (10-55) % Kemper % (Auto) (0-16) % Eos % (Auto) (0-5) % Baso % (Auto) (0-3) % Neut # (Auto) (1.80-7.00) 10^3/uL Lymph # (Auto) (1.00-4.80) 10^3/uL Kemper # (Auto) (0.00-0.80) 10^3/uL Eos # (Auto) (0.00-0.45) 10^3/uL Baso # (Auto) 10^3/uL ABG pH (7.35-7.45) ABG pCO2 (35-45) mm/Hg0 ABG pO2 (80-100) mm/Hg ABG HCO3 (22.0-26.0) mm/L ABG O2 Saturation (95-98) % ABG Base Excess (-2.0-3.0) O2 Delivery Device Sodium (136-145) mEq/L Potassium (3.5-5.0) mEq/L Chloride (98-106) mEq/L Carbon Dioxide (21-32) mmol/L BUN (7-18) mg/dL Creatinine (0.6-1.0) mg/dL Est Cr Clr Drug Dosing mL/min Estimated GFR (MDRD) (>=60) mL/min Glucose (75-99) mg/dL Lactic Acid 2.9 H (0.4-2.0) mmol/L Calcium (8.4-10.1) mg/dL Magnesium (1.8-2.4) mg/dL Total Bilirubin (0.0-1.0) mg/dL AST (15-37) U/L ALT (12-78) U/L Alkaline Phosphatase (46-116) U/L Total Protein (6.4-8.2) g/dL Albumin (3.4-5.0) g/dL Amylase (25-115) U/L Lipase (73-393) U/L Meds: Medications Discontinued Medications Generic Name Dose Route Start Last Admin Trade Name Jessica PRN Reason Stop Dose Admin Acetaminophen 1,000 mg 12/27/20 12:12 12/27/20 12:30 Acetaminophen 500 Mg Tab PO 12/27/20 12:13 1,000 mg ONETIME ONE Administration Sodium Chloride 1,000 mls @ 1,000 mls/hr 12/27/20 11:37 12/27/20 12:06 Normal Saline IV 12/27/20 12:36 1,000 mls/hr .BOLUS ONE Administration Ondansetron HCl 4 mg 12/27/20 11:37 12/27/20 12:07 Ondansetron 4 Mg/2 Ml Sdv IVPUSH 12/27/20 11:38 4 mg NOW STA Administration - Re-Assessments/Exams Free Text/Narrative Re-Assessment/Exam: 12/27/20 12:34 Patient renal function CR is 2.7. Lactic is 2.9. Will admit, hydrate with IV fluids, repeat labs in the morning. Departure - Departure Time of Disposition: 12:34 Disposition: Refer to Observation Condition: Fair Clinical Impression: Gastroenteritis, Renal insufficiency Uncontrolled diabetes mellitus Qualifiers: Diabetes mellitus type: type 2 Glycemic state: with hyperglycemia Qualified Code(s): E11.65 - Type 2 diabetes mellitus with hyperglycemia - Discharge Information *PRESCRIPTION DRUG MONITORING PROGRAM REVIEWED*: Not Applicable *COPY OF PRESCRIPTION DRUG MONITORING REPORT IN PATIENT BONY: Not Applicable Forms: ED Department Discharge Sepsis Event Note (ED) - Evaluation Sepsis Screening Result: No Definite Risk - Focused Exam Vital Signs: Vital Signs Temp Temp Pulse Resp BP Pulse Ox 12/27/20 12:30 101.9 F H 12/27/20 11:12 97.2 F 95 22 H 122/60 97 - My Orders Last 24 Hours: My Active Orders 12/27/20 11:10 UA W/MICROSCOPIC [URIN] Stat 12/27/20 12:15 CORONAVIRUS COVID-19 RAPID [MOLEC] Stat 12/27/20 12:37 CULTURE BLOOD [BC] Stat CULTURE BLOOD [BC] Stat Blood Culture x2 Reflex Set [OM.PC] Stat 12/27/20 12:38 Patient Status Manage Transfer [TRANSFER] Routine 12/27/20 12:39 Resuscitation Status Routine - Assessment/Plan Last 24 Hours: My Active Orders 12/27/20 11:10 UA W/MICROSCOPIC [URIN] Stat 12/27/20 12:15 CORONAVIRUS COVID-19 RAPID [MOLEC] Stat 12/27/20 12:37 CULTURE BLOOD [BC] Stat CULTURE BLOOD [BC] Stat Blood Culture x2 Reflex Set [OM.PC] Stat 12/27/20 12:38 Patient Status Manage Transfer [TRANSFER] Routine 12/27/20 12:39 Resuscitation Status Routine Plan: PLEASE SEE RN NOTE FOR PFSH PLEASE USE ER H&P ADMIT H&P
[2020-12-27 11:39] LABS: O2 DELIVERY DEVICE ROOM AIR
[2020-12-27 11:44] LABS: BASE EXCESS ARTERIAL -4.1 (-2.0-3.0); BICARBONATE,ARTERIAL 21.6 mm/L (22.0-26.0); PCO2 ARTERIAL 39 mm/Hg0 (35-45); PO2 ARTERIAL 19 mm/Hg (80-100)
[2020-12-27 11:45] LABS: O2 SATURATION ARTERIAL 28 % (95-98)
[2020-12-27] MEDS ORDERED: Acetaminophen 500 MG Tab PO ONE (12:12)
[2020-12-27] MEDS ORDERED: CLOTRIMAZOLE TOP PRN (13:42)
[2020-12-27] MEDS ORDERED: Acetaminophen 325 MG Tab PO PRN (13:42)
[2020-12-27] MEDS ORDERED: Morphine 2 MG/ML SYRINGE IVPUSH PRN (13:42)
[2020-12-27] MEDS ORDERED: Ondansetron 4 MG/2 ML SDV IV PRN (13:42)
[2020-12-27] MEDS ORDERED: BETAMETHASONE TOP PRN (13:42)
[2020-12-27] MEDS ORDERED: Ibuprofen 200 MG Tab PO PRN (13:42)
[2020-12-27] MEDS ORDERED: Non-Formulary Medication 1 Each (Semaglutide [Ozempic] 1 MG/0.75 ML Pen.Injctr) SQ SCH (13:42)
[2020-12-27] MEDS ORDERED: Non-Formulary Medication 1 Each (Pregabalin [Pregabalin] 150 MG Capsule) PO SCH (14:00)
[2020-12-27] MEDS ORDERED: Enoxaparin 30 MG/0.3 ML Syringe SUBCUT SCH (14:00)
[2020-12-27] MEDS: Sodium Chloride 0.9% 1,000 ML IV SCH (16:03)
[2020-12-27] MEDS ORDERED: Insulin Lispro 100 Units/ML 3 ML Vial SUBCUT SCH (17:30)
[2020-12-27] MEDS: Insulin Lispro 100 Units/ML 3 ML Vial SUBCUT SCH ×2 (18:43→21:15)
[2020-12-27] MEDS ORDERED: Pregabalin 50 MG Cap PO ONE (20:00)
[2020-12-27] MEDS ORDERED: AMMONIUM LACTATE TOP SCH (20:00)
[2020-12-27] MEDS ORDERED: Amitriptyline 25 MG Tab PO ONE (20:00)
[2020-12-27] MEDS ORDERED: Non-Formulary Medication 1 Each (Bupropion [Wellbutrin Sr] 150 MG Tab.Sr) PO SCH ×2 (20:00)
[2020-12-27] MEDS ORDERED: Insulin Glarg,Human.Rec.Analog 100 Unit/ML SUBCUT SCH (20:00)
[2020-12-27] MEDS ORDERED: AMITRIPTYLINE 25 MG PO SCH (20:00)
[2020-12-27] MEDS ORDERED: buPROPion 150 MG Tab.SR PO ONE (20:00)
--- NOTE | 2020-12-27 20:07 | PCM.SN.2 ---
- Free Text/Narrative Note: 12/27/201999 I received a phone call from HARISH Valera about this patient. She reports the patient just had a large bloody BM that was bright red in color. I came to evaluate the patient. Her VS are BP 100/56, HR is 89. Earlier her BP was 133/76, HR 98. The patient is currently not diaphoretic. She is more alert than earlier today. She reports that she is feeling better than she was earlier. She reports that her stomach no longer has pain. She reports that she feels much better after the BM. She denies nausea, vomiting, dizziness, lightheadedness, abd pain, back pain, shortness of breath, or chest pain. She is alert and oriented. Her hgb earlier was 15. Will redraw a hgb tonight and one in the morning as well. W ill continue to evaluate this patient. Patient placed on residential monitor.
[2020-12-28] MEDS: Sodium Chloride 0.9% 1,000 ML IV SCH (00:30)
[2020-12-28] MEDS ORDERED: Pantoprazole 40 MG Vial IVPUSH ONE (01:07)
[2020-12-28] MEDS ORDERED: Pantoprazole 40 MG in Sodium Chloride 0.9% 100 ML IV SCH (01:15)
[2020-12-28] MEDS ORDERED: DOPamine/Dextrose 5%-Water 400 MG/250 ML BAG IV SCH (01:15)
[2020-12-28] MEDS ORDERED: ALBUMIN IV ONE ×2 (01:21→01:24)
[2020-12-28] MEDS ORDERED: SODIUM CHLORIDE 0.9% IV ONE ×2 (01:21→01:24)
[2020-12-28] MEDS ORDERED: Insulin Regular, Human 100 Units/ML 3 ML Vial IV ONE (01:55)
[2020-12-28] MEDS ORDERED: 50% Dextrose in Water 50 ML Syringe IV PRN (01:55)
[2020-12-28] MEDS ORDERED: Glucagon,Human Recombinant 1 MG Vial IM PRN (01:55)
[2020-12-28] MEDS ORDERED: Sodium Chloride 0.9% 1,000 ML IV ONE (01:56)
--- NOTE | 2020-12-28 02:28 | PCM.PN ---
- General Info Date of Service: 12/27/20 Functional Status: Reports: New Symptoms (Hypotension, Bloody BM x2) - Review of Systems General: Reports: Weakness, Fatigue, Malaise HEENT: Reports: No Symptoms Pulmonary: Reports: No Symptoms Cardiovascular: Reports: No Symptoms Gastrointestinal: Reports: Abdominal Pain, Diarrhea, Hematochezia (x2 BMs) Genitourinary: Reports: No Symptoms Musculoskeletal: Reports: No Symptoms Skin: Reports: No Symptoms Neurological: Reports: No Symptoms Psychiatric: Reports: No Symptoms - Patient Data Vitals - Most Recent: Last Vital Signs Temp 98.7 F 12/27/20 23:30 Pulse 87 12/27/20 23:30 Resp 16 12/27/20 23:30 BP 90/50 L 12/28/20 01:15 Pulse Ox 94 L 12/27/20 23:30 Orthostatic Blood Pressure [ 87/38 Standing] Orthostatic Blood Pressure [ 91/40 Sitting] Orthostatic Blood Pressure [ 95/45 Supine] Weight - Most Recent: 175 lb I&O - Last 24 Hours: Intake & Output 12/27/20 12/27/20 12/28/20 14:59 22:59 06:59 Intake Total 1154 Balance 1154 Lab Results Last 24 Hours: Laboratory Results - last 24 hr 12/27/20 12/27/20 12/27/20 Range/Units 11:35 11:35 11:35 WBC 6.3 (5.0-10.0) 10^3/uL RBC 4.99 (4.00-5.50) 10^6/uL Hgb 15.0 (12.0-16.0) g/dL Hct 43.8 (37.0-47.0) % MCV 87.8 (82.0-94.0) fL MCH 30.1 (27.0-32.0) pg MCHC 34.2 (33.0-38.0) g/dL RDW Coeff of Arnoldo 14.1 (11.0-15.0) % Plt Count 162 (150-400) 10^3/uL Neut % (Auto) 82.3 (35-85) % Lymph % (Auto) 8.8 L (10-55) % Bacon % (Auto) 8.6 (0-16) % Eos % (Auto) 0.3 (0-5) % Baso % (Auto) 0 (0-3) % Neut # (Auto) 5.15 (1.80-7.00) 10^3/uL Lymph # (Auto) 0.55 L (1.00-4.80) 10^3/uL Bacon # (Auto) 0.54 (0.00-0.80) 10^3/uL Eos # (Auto) 0.02 (0.00-0.45) 10^3/uL Baso # (Auto) 0.00 10^3/uL ABG pH 7.35 (7.35-7.45) ABG pCO2 39 (35-45) mm/Hg0 ABG pO2 19 L (80-100) mm/Hg ABG HCO3 21.6 L (22.0-26.0) mm/L ABG O2 Saturation 28 L (95-98) % ABG Base Excess -4.1 L (-2.0-3.0) O2 Delivery Device Room air Sodium 133 L (136-145) mEq/L Potassium 5.0 (3.5-5.0) mEq/L Chloride 96 L (98-106) mEq/L Carbon Dioxide 22 (21-32) mmol/L BUN 44 H (7-18) mg/dL Creatinine 2.7 H* (0.6-1.0) mg/dL Est Cr Clr Drug Dosing 18.67 mL/min Estimated GFR (MDRD) 18 L (>=60) mL/min Glucose 381 H* D (75-99) mg/dL POC Glucose (75-105) mg/dL Lactic Acid (0.4-2.0) mmol/L Calcium 9.0 (8.4-10.1) mg/dL Magnesium 2.3 (1.8-2.4) mg/dL Total Bilirubin 1.1 H (0.0-1.0) mg/dL AST 117 H (15-37) U/L ALT 77 (12-78) U/L Alkaline Phosphatase 213 H (46-116) U/L Total Protein 7.6 (6.4-8.2) g/dL Albumin 3.4 (3.4-5.0) g/dL Amylase 63 (25-115) U/L Lipase 76 (73-393) U/L SARS CoV-2 RNA Rapid AMELIA (NEGATIVE) 12/27/20 12/27/20 12/27/20 Range/Units 11:35 14:13 20:15 WBC (5.0-10.0) 10^3/uL RBC (4.00-5.50) 10^6/uL Hgb 12.3 (12.0-16.0) g/dL Hct 36.1 L (37.0-47.0) % MCV (82.0-94.0) fL MCH (27.0-32.0) pg MCHC (33.0-38.0) g/dL RDW Coeff of Arnoldo (11.0-15.0) % Plt Count (150-400) 10^3/uL Neut % (Auto) (35-85) % Lymph % (Auto) (10-55) % Bacon % (Auto) (0-16) % Eos % (Auto) (0-5) % Baso % (Auto) (0-3) % Neut # (Auto) (1.80-7.00) 10^3/uL Lymph # (Auto) (1.00-4.80) 10^3/uL Bacon # (Auto) (0.00-0.80) 10^3/uL Eos # (Auto) (0.00-0.45) 10^3/uL Baso # (Auto) 10^3/uL ABG pH (7.35-7.45) ABG pCO2 (35-45) mm/Hg0 ABG pO2 (80-100) mm/Hg ABG HCO3 (22.0-26.0) mm/L ABG O2 Saturation (95-98) % ABG Base Excess (-2.0-3.0) O2 Delivery Device Sodium (136-145) mEq/L Potassium (3.5-5.0) mEq/L Chloride (98-106) mEq/L Carbon Dioxide (21-32) mmol/L BUN (7-18) mg/dL Creatinine (0.6-1.0) mg/dL Est Cr Clr Drug Dosing mL/min Estimated GFR (MDRD) (>=60) mL/min Glucose (75-99) mg/dL POC Glucose (75-105) mg/dL Lactic Acid 2.9 H (0.4-2.0) mmol/L Calcium (8.4-10.1) mg/dL Magnesium (1.8-2.4) mg/dL Total Bilirubin (0.0-1.0) mg/dL AST (15-37) U/L ALT (12-78) U/L Alkaline Phosphatase (46-116) U/L Total Protein (6.4-8.2) g/dL Albumin (3.4-5.0) g/dL Amylase (25-115) U/L Lipase (73-393) U/L SARS CoV-2 RNA Rapid AMELIA Negative (NEGATIVE) 12/27/20 12/28/20 12/28/20 Range/Units 21:07 00:08 01:25 WBC (5.0-10.0) 10^3/uL RBC (4.00-5.50) 10^6/uL Hgb 12.3 (12.0-16.0) g/dL Hct 36.4 L (37.0-47.0) % MCV (82.0-94.0) fL MCH (27.0-32.0) pg MCHC (33.0-38.0) g/dL RDW Coeff of Arnoldo (11.0-15.0) % Plt Count (150-400) 10^3/uL Neut % (Auto) (35-85) % Lymph % (Auto) (10-55) % Bacon % (Auto) (0-16) % Eos % (Auto) (0-5) % Baso % (Auto) (0-3) % Neut # (Auto) (1.80-7.00) 10^3/uL Lymph # (Auto) (1.00-4.80) 10^3/uL Bacon # (Auto) (0.00-0.80) 10^3/uL Eos # (Auto) (0.00-0.45) 10^3/uL Baso # (Auto) 10^3/uL ABG pH (7.35-7.45) ABG pCO2 (35-45) mm/Hg0 ABG pO2 (80-100) mm/Hg ABG HCO3 (22.0-26.0) mm/L ABG O2 Saturation (95-98) % ABG Base Excess (-2.0-3.0) O2 Delivery Device Sodium 135 L (136-145) mEq/L Potassium 4.5 (3.5-5.0) mEq/L Chloride 101 (98-106) mEq/L Carbon Dioxide 21 (21-32) mmol/L BUN 46 H (7-18) mg/dL Creatinine 2.6 H* (0.6-1.0) mg/dL Est Cr Clr Drug Dosing 19.39 mL/min Estimated GFR (MDRD) 18 L (>=60) mL/min Glucose 387 H* (75-99) mg/dL POC Glucose 434 H* (75-105) mg/dL Lactic Acid (0.4-2.0) mmol/L Calcium 8.0 L (8.4-10.1) mg/dL Magnesium (1.8-2.4) mg/dL Total Bilirubin (0.0-1.0) mg/dL AST (15-37) U/L ALT (12-78) U/L Alkaline Phosphatase (46-116) U/L Total Protein (6.4-8.2) g/dL Albumin (3.4-5.0) g/dL Amylase (25-115) U/L Lipase (73-393) U/L SARS CoV-2 RNA Rapid AMELIA (NEGATIVE) 12/28/20 Range/Units 01:25 WBC (5.0-10.0) 10^3/uL RBC (4.00-5.50) 10^6/uL Hgb (12.0-16.0) g/dL Hct (37.0-47.0) % MCV (82.0-94.0) fL MCH (27.0-32.0) pg MCHC (33.0-38.0) g/dL RDW Coeff of Arnoldo (11.0-15.0) % Plt Count (150-400) 10^3/uL Neut % (Auto) (35-85) % Lymph % (Auto) (10-55) % Bacon % (Auto) (0-16) % Eos % (Auto) (0-5) % Baso % (Auto) (0-3) % Neut # (Auto) (1.80-7.00) 10^3/uL Lymph # (Auto) (1.00-4.80) 10^3/uL Bacon # (Auto) (0.00-0.80) 10^3/uL Eos # (Auto) (0.00-0.45) 10^3/uL Baso # (Auto) 10^3/uL ABG pH (7.35-7.45) ABG pCO2 (35-45) mm/Hg0 ABG pO2 (80-100) mm/Hg ABG HCO3 (22.0-26.0) mm/L ABG O2 Saturation (95-98) % ABG Base Excess (-2.0-3.0) O2 Delivery Device Sodium (136-145) mEq/L Potassium (3.5-5.0) mEq/L Chloride (98-106) mEq/L Carbon Dioxide (21-32) mmol/L BUN (7-18) mg/dL Creatinine (0.6-1.0) mg/dL Est Cr Clr Drug Dosing mL/min Estimated GFR (MDRD) (>=60) mL/min Glucose (75-99) mg/dL POC Glucose (75-105) mg/dL Lactic Acid 2.0 (0.4-2.0) mmol/L Calcium (8.4-10.1) mg/dL Magnesium (1.8-2.4) mg/dL Total Bilirubin (0.0-1.0) mg/dL AST (15-37) U/L ALT (12-78) U/L Alkaline Phosphatase (46-116) U/L Total Protein (6.4-8.2) g/dL Albumin (3.4-5.0) g/dL Amylase (25-115) U/L Lipase (73-393) U/L SARS CoV-2 RNA Rapid AMELIA (NEGATIVE) Sam Results Last 24 Hours: Microbiology 12/27/20 14:20 Anaerobic Blood Culture - Final Blood - Venous Med Orders - Current: Current Medications Acetaminophen (Acetaminophen 325 Mg Tab) 650 mg PO Q4H PRN PRN Reason: Pain (Mild 1-3)/fever Aspirin (Aspirin 81 Mg Tab.Ec) 81 mg PO DAILY MINAL Dextrose/Water (50% Dextrose In Water 50 Ml Syringe) 50 ml IV ASDIRECTED PRN PRN Reason: Hypoglycemia Enoxaparin Sodium (Enoxaparin 30 Mg/0.3 Ml Syringe) 30 mg SUBCUT Q24H MINAL Last Admin: 12/27/20 14:37 Dose: 30 mg Documented by: Glucagon (Glucagon,Human Recombinant 1 Mg Vial) 1 mg IM ASDIRECTED PRN PRN Reason: Hypoglycemia Sodium Chloride (Normal Saline) 1,000 mls @ 150 mls/hr IV ASDIRECTED MINAL Stop: 12/28/20 20:24 Last Infusion: 12/28/20 01:44 Dose: 80 mls/hr Documented by: Pantoprazole Sodium 40 mg/ (Sodium Chloride) 100 mls @ 20 mls/hr IV .CONTINUOUS [facility] Last Admin: 12/28/20 01:42 Dose: 20 mls/hr Documented by: Albumin Human 12.5 gm/ Sodium (Chloride) 250 mls @ 240 mls/hr IV ONETIME ONE Stop: 12/28/20 02:23 Last Admin: 12/28/20 02:12 Dose: Not Given Documented by: Albumin Human 12.5 gm/ Sodium (Chloride) 250 mls @ 240 mls/hr IV ONETIME ONE Stop: 12/28/20 02:26 Last Admin: 12/28/20 02:12 Dose: Not Given Documented by: Sodium Chloride (Normal Saline) 1,000 mls @ 1,000 mls/hr IV .BOLUS ONE Stop: 12/28/20 02:55 Ibuprofen (Ibuprofen 200 Mg Tab) 600 mg PO Q6H PRN PRN Reason: Pain (mild 1-3) Last Admin: 12/27/20 14:36 Dose: 600 mg Documented by: Insulin Glargine (Insulin Glarg,Human.Rec.Analog 100 Unit/Ml) 72 unit SUBCUT BID [facility] Last Admin: 12/27/20 21:17 Dose: 72 units Documented by: Insulin Human Lispro (Insulin Lispro 100 Units/Ml 3 Ml Vial) 70 unit SUBCUT TID MEALS [facility] Last Admin: 12/27/20 18:43 Dose: Not Given Documented by: Insulin Human Lispro (Insulin Lispro 100 Units/Ml 3 Ml Vial) 0 unit SUBCUT WITHMEALSANDBED [facility] Last Admin: 12/27/20 21:15 Dose: 26 units Documented by: Morphine Sulfate (Morphine 2 Mg/Ml Syringe) 2 mg IVPUSH Q2H PRN PRN Reason: Pain (severe 7-10) Non-Formulary Medication (Amitriptyline [Elavil]) 25 mg PO BEDTIME [facility] Non-Formulary Medication (Ammonium Lactate [Ammonium Lactate]) 1 applic TOP BID MINAL Non-Formulary Medication (Betamethasone/Clotrimazole [Lotrisone]) 1 applic TOP BID PRN PRN Reason: itching Non-Formulary Medication (Citalopram [Citalopram Hbr]) 20 mg PO DAILY MINAL Non-Formulary Medication (Fenofibrate Nanocrystallized [Fenofibrate]) 145 mg PO DAILY MINAL Non-Formulary Medication (Icosapent Ethyl [Vascepa]) 2,000 mg PO BID MINAL Non-Formulary Medication (Levothyroxine [Levothyroxine]) 75 mcg PO ACBREAKFAST MINAL Non-Formulary Medication (Metoprolol Succinate [Metoprolol Succinate]) 25 mg PO DAILY MINAL Non-Formulary Medication (Mupirocin [Mupirocin]) 1 applic TOP DAILY MINAL Non-Formulary Medication (Pregabalin [Pregabalin]) 1 tab PO TID MINAL Non-Formulary Medication (Rosuvastatin [Crestor]) 1 tab PO DAILY MINAL Non-Formulary Medication (Semaglutide [Ozempic]) 2 mg SQ WEEKLY MINAL Non-Formulary Medication (Bupropion [Wellbutrin Sr]) 150 mg PO BID MINAL Ondansetron HCl (Ondansetron 4 Mg/2 Ml Sdv) 4 mg IV Q6H PRN PRN Reason: Nausea/Vomiting Discontinued Medications Acetaminophen (Acetaminophen 500 Mg Tab) 1,000 mg PO ONETIME ONE Stop: 12/27/20 12:13 Last Admin: 12/27/20 12:30 Dose: 1,000 mg Documented by: Amitriptyline HCl (Amitriptyline 25 Mg Tab) 25 mg PO ONETIME ONE Stop: 12/27/20 20:01 Last Admin: 12/27/20 20:00 Dose: Not Given Documented by: Bupropion HCl (Bupropion 150 Mg Tab.Sr) 150 mg PO ONETIME ONE Stop: 12/27/20 20:01 Last Admin: 12/27/20 20:00 Dose: Not Given Documented by: Sodium Chloride (Normal Saline) 1,000 mls @ 1,000 mls/hr IV .BOLUS ONE Stop: 12/27/20 12:36 Last Admin: 12/27/20 12:06 Dose: 1,000 mls/hr Documented by: Sodium Chloride (Normal Saline) 1,000 mls @ 999 mls/hr IV .BOLUS ONE Stop: 12/27/20 14:42 Last Admin: 12/27/20 14:35 Dose: 999 mls/hr Documented by: Dopamine HCl/Dextrose (Dopamine In D5w 400 Mg/250 Ml) 400 mg in 250 mls @ 5.953 mls/hr IV TITRATE MINAL; Protocol Insulin Human Regular (Insulin Regular, Human 100 Units/Ml 3 Ml Vial) 8 unit IV ONETIME ONE Stop: 12/28/20 01:56 Ondansetron HCl (Ondansetron 4 Mg/2 Ml Sdv) 4 mg IVPUSH NOW STA Stop: 12/27/20 11:38 Last Admin: 12/27/20 12:07 Dose: 4 mg Documented by: Pantoprazole Sodium (Pantoprazole 40 Mg Vial) 80 mg IVPUSH ONETIME ONE Stop: 12/28/20 01:08 Last Admin: 12/28/20 01:33 Dose: 80 mg Documented by: Pregabalin (Pregabalin 50 Mg Cap) 150 mg PO ONETIME ONE Stop: 12/27/20 20:01 Last Admin: 12/27/20 20:00 Dose: Not Given Documented by: - Exam General: Alert, Oriented, Cooperative, Moderate Distress Neck: Supple, Trachea Midline, No JVD Lungs: Clear to Auscultation, Normal Respiratory Effort Cardiovascular: Regular Rate, Regular Rhythm GI/Abdominal Exam: Soft, Distended, Tender (mildly diffuse). No: Guarding, Rigid, Rebound Back Exam: Normal Inspection, Full Range of Motion. No: CVA Tenderness (L), CVA Tenderness (R) Extremities: Normal Inspection, Normal Range of Motion, Non-Tender, No Pedal Edema, Normal Capillary Refill Peripheral Pulses: 2+: Radial (L), Radial (R), Posterior Tibial (L), Posterior Tibial (R) Skin: Warm, Dry, Intact Neurological: No New Focal Deficit Psy/Mental Status: Alert, Normal Affect, Normal Mood - Patient Data Lab Results Last 24 hrs: Laboratory Results - last 24 hr 12/27/20 12/27/20 12/27/20 Range/Units 11:35 11:35 11:35 WBC 6.3 (5.0-10.0) 10^3/uL RBC 4.99 (4.00-5.50) 10^6/uL Hgb 15.0 (12.0-16.0) g/dL Hct 43.8 (37.0-47.0) % MCV 87.8 (82.0-94.0) fL MCH 30.1 (27.0-32.0) pg MCHC 34.2 (33.0-38.0) g/dL RDW Coeff of Arnoldo 14.1 (11.0-15.0) % Plt Count 162 (150-400) 10^3/uL Neut % (Auto) 82.3 (35-85) % Lymph % (Auto) 8.8 L (10-55) % Bacon % (Auto) 8.6 (0-16) % Eos % (Auto) 0.3 (0-5) % Baso % (Auto) 0 (0-3) % Neut # (Auto) 5.15 (1.80-7.00) 10^3/uL Lymph # (Auto) 0.55 L (1.00-4.80) 10^3/uL Bacon # (Auto) 0.54 (0.00-0.80) 10^3/uL Eos # (Auto) 0.02 (0.00-0.45) 10^3/uL Baso # (Auto) 0.00 10^3/uL ABG pH 7.35 (7.35-7.45) ABG pCO2 39 (35-45) mm/Hg0 ABG pO2 19 L (80-100) mm/Hg ABG HCO3 21.6 L (22.0-26.0) mm/L ABG O2 Saturation 28 L (95-98) % ABG Base Excess -4.1 L (-2.0-3.0) O2 Delivery Device Room air Sodium 133 L (136-145) mEq/L Potassium 5.0 (3.5-5.0) mEq/L Chloride 96 L (98-106) mEq/L Carbon Dioxide 22 (21-32) mmol/L BUN 44 H (7-18) mg/dL Creatinine 2.7 H* (0.6-1.0) mg/dL Est Cr Clr Drug Dosing 18.67 mL/min Estimated GFR (MDRD) 18 L (>=60) mL/min Glucose 381 H* D (75-99) mg/dL POC Glucose (75-105) mg/dL Lactic Acid (0.4-2.0) mmol/L Calcium 9.0 (8.4-10.1) mg/dL Magnesium 2.3 (1.8-2.4) mg/dL Total Bilirubin 1.1 H (0.0-1.0) mg/dL AST 117 H (15-37) U/L ALT 77 (12-78) U/L Alkaline Phosphatase 213 H (46-116) U/L Total Protein 7.6 (6.4-8.2) g/dL Albumin 3.4 (3.4-5.0) g/dL Amylase 63 (25-115) U/L Lipase 76 (73-393) U/L SARS CoV-2 RNA Rapid AMELIA (NEGATIVE) 12/27/20 12/27/20 12/27/20 Range/Units 11:35 14:13 20:15 WBC (5.0-10.0) 10^3/uL RBC (4.00-5.50) 10^6/uL Hgb 12.3 (12.0-16.0) g/dL Hct 36.1 L (37.0-47.0) % MCV (82.0-94.0) fL MCH (27.0-32.0) pg MCHC (33.0-38.0) g/dL RDW Coeff of Arnoldo (11.0-15.0) % Plt Count (150-400) 10^3/uL Neut % (Auto) (35-85) % Lymph % (Auto) (10-55) % Bacon % (Auto) (0-16) % Eos % (Auto) (0-5) % Baso % (Auto) (0-3) % Neut # (Auto) (1.80-7.00) 10^3/uL Lymph # (Auto) (1.00-4.80) 10^3/uL Bacon # (Auto) (0.00-0.80) 10^3/uL Eos # (Auto) (0.00-0.45) 10^3/uL Baso # (Auto) 10^3/uL ABG pH (7.35-7.45) ABG pCO2 (35-45) mm/Hg0 ABG pO2 (80-100) mm/Hg ABG HCO3 (22.0-26.0) mm/L ABG O2 Saturation (95-98) % ABG Base Excess (-2.0-3.0) O2 Delivery Device Sodium (136-145) mEq/L Potassium (3.5-5.0) mEq/L Chloride (98-106) mEq/L Carbon Dioxide (21-32) mmol/L BUN (7-18) mg/dL Creatinine (0.6-1.0) mg/dL Est Cr Clr Drug Dosing mL/min Estimated GFR (MDRD) (>=60) mL/min Glucose (75-99) mg/dL POC Glucose (75-105) mg/dL Lactic Acid 2.9 H (0.4-2.0) mmol/L Calcium (8.4-10.1) mg/dL Magnesium (1.8-2.4) mg/dL Total Bilirubin (0.0-1.0) mg/dL AST (15-37) U/L ALT (12-78) U/L Alkaline Phosphatase (46-116) U/L Total Protein (6.4-8.2) g/dL Albumin (3.4-5.0) g/dL Amylase (25-115) U/L Lipase (73-393) U/L SARS CoV-2 RNA Rapid AMELIA Negative (NEGATIVE) 12/27/20 12/28/20 12/28/20 Range/Units 21:07 00:08 01:25 WBC (5.0-10.0) 10^3/uL RBC (4.00-5.50) 10^6/uL Hgb 12.3 (12.0-16.0) g/dL Hct 36.4 L (37.0-47.0) % MCV (82.0-94.0) fL MCH (27.0-32.0) pg MCHC (33.0-38.0) g/dL RDW Coeff of Arnoldo (11.0-15.0) % Plt Count (150-400) 10^3/uL Neut % (Auto) (35-85) % Lymph % (Auto) (10-55) % Bacon % (Auto) (0-16) % Eos % (Auto) (0-5) % Baso % (Auto) (0-3) % Neut # (Auto) (1.80-7.00) 10^3/uL Lymph # (Auto) (1.00-4.80) 10^3/uL Bacon # (Auto) (0.00-0.80) 10^3/uL Eos # (Auto) (0.00-0.45) 10^3/uL Baso # (Auto) 10^3/uL ABG pH (7.35-7.45) ABG pCO2 (35-45) mm/Hg0 ABG pO2 (80-100) mm/Hg ABG HCO3 (22.0-26.0) mm/L ABG O2 Saturation (95-98) % ABG Base Excess (-2.0-3.0) O2 Delivery Device Sodium 135 L (136-145) mEq/L Potassium 4.5 (3.5-5.0) mEq/L Chloride 101 (98-106) mEq/L Carbon Dioxide 21 (21-32) mmol/L BUN 46 H (7-18) mg/dL Creatinine 2.6 H* (0.6-1.0) mg/dL Est Cr Clr Drug Dosing 19.39 mL/min Estimated GFR (MDRD) 18 L (>=60) mL/min Glucose 387 H* (75-99) mg/dL POC Glucose 434 H* (75-105) mg/dL Lactic Acid (0.4-2.0) mmol/L Calcium 8.0 L (8.4-10.1) mg/dL Magnesium (1.8-2.4) mg/dL Total Bilirubin (0.0-1.0) mg/dL AST (15-37) U/L ALT (12-78) U/L Alkaline Phosphatase (46-116) U/L Total Protein (6.4-8.2) g/dL Albumin (3.4-5.0) g/dL Amylase (25-115) U/L Lipase (73-393) U/L SARS CoV-2 RNA Rapid AMELIA (NEGATIVE) 12/28/20 Range/Units 01:25 WBC (5.0-10.0) 10^3/uL RBC (4.00-5.50) 10^6/uL Hgb (12.0-16.0) g/dL Hct (37.0-47.0) % MCV (82.0-94.0) fL MCH (27.0-32.0) pg MCHC (33.0-38.0) g/dL RDW Coeff of Arnoldo (11.0-15.0) % Plt Count (150-400) 10^3/uL Neut % (Auto) (35-85) % Lymph % (Auto) (10-55) % Bacon % (Auto) (0-16) % Eos % (Auto) (0-5) % Baso % (Auto) (0-3) % Neut # (Auto) (1.80-7.00) 10^3/uL Lymph # (Auto) (1.00-4.80) 10^3/uL Bacon # (Auto) (0.00-0.80) 10^3/uL Eos # (Auto) (0.00-0.45) 10^3/uL Baso # (Auto) 10^3/uL ABG pH (7.35-7.45) ABG pCO2 (35-45) mm/Hg0 ABG pO2 (80-100) mm/Hg ABG HCO3 (22.0-26.0) mm/L ABG O2 Saturation (95-98) % ABG Base Excess (-2.0-3.0) O2 Delivery Device Sodium (136-145) mEq/L Potassium (3.5-5.0) mEq/L Chloride (98-106) mEq/L Carbon Dioxide (21-32) mmol/L BUN (7-18) mg/dL Creatinine (0.6-1.0) mg/dL Est Cr Clr Drug Dosing mL/min Estimated GFR (MDRD) (>=60) mL/min Glucose (75-99) mg/dL POC Glucose (75-105) mg/dL Lactic Acid 2.0 (0.4-2.0) mmol/L Calcium (8.4-10.1) mg/dL Magnesium (1.8-2.4) mg/dL Total Bilirubin (0.0-1.0) mg/dL AST (15-37) U/L ALT (12-78) U/L Alkaline Phosphatase (46-116) U/L Total Protein (6.4-8.2) g/dL Albumin (3.4-5.0) g/dL Amylase (25-115) U/L Lipase (73-393) U/L SARS CoV-2 RNA Rapid AMELIA (NEGATIVE) Result Diagrams: 12/28/20 00:08 12/28/20 01:25 Sam Results Last 24 hrs: Microbiology 12/27/20 14:20 Anaerobic Blood Culture - Final Blood - Venous Sepsis Event Note - Evaluation Sepsis Screening Result: No Definite Risk - Focused Exam Vital Signs: Vital Signs Temp Temp Pulse Resp BP Pulse Ox 12/28/20 01:15 90/50 L 12/27/20 23:30 98.7 F 87 16 81/42 L 94 L 12/27/20 20:00 99.4 F 89 16 94/42 L 92 L 12/27/20 16:00 100.4 F 89 20 100/56 L 93 L 12/27/20 15:36 100.4 F 12/27/20 14:36 102.2 F H - Problem List Review Problem List Initiated/Reviewed/Updated: Yes - My Orders Last 24 Hours: My Active Orders 12/27/20 11:10 UA W/MICROSCOPIC [URIN] Stat 12/27/20 12:37 Blood Culture x2 Reflex Set [OM.PC] Stat 12/27/20 12:39 Resuscitation Status Routine 12/27/20 13:42 Acetaminophen [TylenoL] 650 mg PO Q4H PRN Betamethasone/Clotrimazole [Lotrisone] 1 applic TOP BID PRN Ibuprofen [Motrin] 600 mg PO Q6H PRN Morphine 2 mg IVPUSH Q2H PRN Ondansetron [Zofran] 4 mg IV Q6H PRN Semaglutide [Ozempic] 2 mg SQ WEEKLY 12/27/20 13:42 Patient Status [ADT] Routine Antiembolic Devices [RC] 1000,2200 Blood Glucose Check, Bedside [RC] 0730,1130,1730,2100 Oxygen Therapy [RC] .PRN Up With Assistance [RC] .PRN Vital Signs [RC] 0000,0400,0800,1200,1600,2000 Antiembolic Hose [OM.PC] Per Unit Routine 12/27/20 13:45 Sodium Chloride 0.9% [Normal Saline] 1,000 ml IV ASDIRECTED 12/27/20 14:00 Enoxaparin [Lovenox] 30 mg SUBCUT Q24H Pregabalin [Pregabalin] 1 tab PO TID 12/27/20 14:20 CULTURE BLOOD [BC] Stat 12/27/20 14:25 CULTURE BLOOD [BC] Stat 12/27/20 17:30 Insulin Lispro [HumaLOG] 70 unit SUBCUT TIDMEALS Insulin Lispro [HumaLOG] See Dose Instructions SUBCUT WITHMEALSANDBED 12/27/20 Dinner Consistent Carbohydrate Diet [DIET] 12/27/20 19:30 Telemetry Monitoring [Cardiac Monitoring] [RC] 08,199912/27/20 20:00 Amitriptyline [Elavil] 25 mg PO BEDTIME Ammonium Lactate [Ammonium Lactate] 1 applic TOP BID Bupropion [Wellbutrin Sr] 150 mg PO BID Insulin Glarg,Human.Rec.Analog [LantUS] 72 unit SUBCUT BID icosapent ethyL [Vascepa] 2,000 mg PO BID 12/28/20 01:05 Abdomen Pelvis wo Cont [CT] Stat 12/28/20 01:15 Pantoprazole [ProTONIX IV] 40 mg Sodium Chloride 0.9% [Normal Saline] 100 ml IV .CONTINUOUS 12/28/20 01:21 Albumin 25% [Flexbumin 25%] 12.5 gm Sodium Chloride 0.9% [Normal Saline] 200 ml IV ONETIME 12/28/20 01:24 Albumin 25% [Flexbumin 25%] 12.5 gm Sodium Chloride 0.9% [Normal Saline] 200 ml IV ONETIME 12/28/20 01:55 Dextrose 50% in Water 50 ml IV ASDIRECTED PRN Glucagon,Human Recombinant [GlucaGen] 1 mg IM ASDIRECTED PRN 12/28/20 01:56 Sodium Chloride 0.9% [Normal Saline] 1,000 ml IV .BOLUS 12/28/20 05:00 BASIC METABOLIC PANEL,BMP [CHEM] DAILY C-REACTIVE PROTEIN [CHEM] DAILY CBC WITH AUTO DIFF [HEME] DAILY LACTIC ACID [CHEM] DAILY 12/28/20 07:00 Levothyroxine [Levothyroxine] 75 mcg PO ACBREAKFAST 12/28/20 08:00 Aspirin [Halfprin] 81 mg PO DAILY Citalopram [Citalopram HBr] 20 mg PO DAILY Fenofibrate Nanocrystallized [Fenofibrate] 145 mg PO DAILY Metoprolol Succinate [Metoprolol Succinate] 25 mg PO DAILY Mupirocin [Mupirocin] 1 applic TOP DAILY Rosuvastatin [Crestor] 1 tab PO DAILY 12/29/20 05:00 BASIC METABOLIC PANEL,BMP [CHEM] DAILY C-REACTIVE PROTEIN [CHEM] DAILY CBC WITH AUTO DIFF [HEME] DAILY LACTIC ACID [CHEM] DAILY - Plan Plan:: 12/27/20 2000pm RN reports patient had 1 BM birght red blood. No change in vitals, no symptoms per patient. H/H ordered. Is 12.3. See simple note. 12/27/20 2339pm I received a call from HARISH Valera about the patient having 2 episodes of bright red BMs. She reports the patient blood pressure is low at 81/42. She reports HR remains in the 80s. Patient is currently getting NS bolus x2, then at 125ml/hr currently on her 4th liter bag. I asked RN to order labs and call me back with H/H result. 12/28/20 0001 RN called back and reports patient hgb is same has prior of 12.3, unchanged from previous. With patient 2 BM bright red blood, hgb, and now hypotensive, will do a protonix bolus, gtt. Patient currently on her 4L NS bag, will transfer patient due to hypotension. 12/28/20 0028 I called and spoke to Rafael Shabazz. He has requested the patient have ct abd/pelvis without contrast. He requested repeat labs to be done. I have ordered these. With patient hypotension, he requested patient be seen in the ER first prior to going to the floor. We then spoke to Dr. Nelson in ER. He reported it was fine to stop in the ER. I then asked about starting pressures due to patient hypotension and already getting more than the 30ml/kg bolus. Dr. Nelson reports should speak to Assessment Director. I then spoke to Dr. Barnes Assessment Director. He reports to fly patient, give Albumin IV x2, Give regular insulin IV 8 units, slow NS rate while giving Albumin. I will transfer this patient now. 12/28/20 0132 We do not have albumin available. Labs are back. Reviewed with Dr. Barnes. Will give another 1L NS bolus, then keep running at 150ml/hr due to no Albumin. Also informed him the patient does take Metoprolol. 12/28/[address] scan done, I viewed and see urine in bladder. Patient reports she does need to urinate, but has some retention. This could be reason for her CR still at 2.6. Will order ratliff to be placed. See vital sign sheet for vitals from RN. 12/28/20 0205 I called and spoke to Michelle daughter about the patient and answered all her questions. 12/28/20219 Flight has arrived. They are now assuming care of the patient. Patient BP 90/50. BS 389. 1200ml out of urine. 12/28/20 023 Radiologist called, patient abd/pelvis without contrast shows possible ischemic colitis vs infectious, less likely, ulcerative colitis. This patient is being transferred to [facility] via flight. Risk vs benefits explained to the patient and daughter. Both have agreed and accepted. The risk of transfer are crash, , worsening of condition, need for pre ssors. The risk of staying in [place] is , worsening of condition. The benefits of transfer are higher level of care, ICU, more medications to be given not available in [place]. The benefits of staying in [place] is none.
[2020-12-28] MEDS ORDERED: Non-Formulary Medication 1 Each (Levothyroxine [Levothyroxine] 75 MCG Tablet) PO SCH (07:00)
[2020-12-28] MEDS ORDERED: MUPIROCIN 1 GM TOP SCH (08:00)
[2020-12-28] MEDS ORDERED: Non-Formulary Medication 1 Each (Fenofibrate Nanocrystallized [Fenofibrate] 145 MG Tablet) PO SCH (08:00)
[2020-12-28] MEDS ORDERED: Non-Formulary Medication 1 Each (Rosuvastatin [Crestor] 10 MG Tablet) PO SCH (08:00)
[2020-12-28] MEDS ORDERED: Non-Formulary Medication 1 Each (Metoprolol Succinate [Metoprolol Succinate] 25 MG Tab.Er. PO SCH (08:00)
[2020-12-28] MEDS ORDERED: CITALOPRAM 20 MG PO SCH (08:00)
[2020-12-28] MEDS ORDERED: Aspirin 81 MG Tab.EC PO SCH (08:00)
== END 2020-12-28 02:50 ==
LOC: CC.ED 11:10 → CC.MS 12:39 → UNDOADMOB 13:00 → CC.ED 13:14 → UNDODISOB 12-28 02:50
PROVIDERS: ADMIT Nurse Practitioner; ATTEND Family Medicine
DX: K52.9 Noninfective gastroenteritis and colitis, unspecified (principal); I10 Essential (primary) hypertension; E78.00 Pure hypercholesterolemia, unspecified; E03.9 Hypothyroidism, unspecified; E11.65 Type 2 diabetes mellitus with hyperglycemia; Z90.49 Acquired absence of other specified parts of digestive tract; Z88.8 Allergy status to other drugs, medicaments and biological substances; Z79.899 Other long term (current) drug therapy; Z79.4 Long term (current) use of insulin; Z79.890 Hormone replacement therapy; Z98.890 Other specified postprocedural states; Z20.822 Contact with and (suspected) exposure to COVID-19
CPT/HCPCS: 36415; 51702; 74176; 80048; 80053; 82150; 82803; 82947; 83605; 83690; 83735; 85014; 85018; 85025; 87040; 96372; 96374; 99220; 99226; 99285; A9270; C9113; G0378; J1650; J1815; J2405; J7030; U0002; 36600

== ENCOUNTER 2025-05-31 02:22 | Observation (INO) | payer MEDICARE, BC ==
[2025-05-31 02:56] LABS: BASOPHILS ABSOLUTE AUTO 0.04 10^3/uL (0.00-0.50); BASOPHILS PERCENT AUTO 0.9 % (0-1); EOSINOPHILS ABSOLUTE AUTO 0.18 10^3/uL (0.00-1.50); EOSINOPHILS PERCENT AUTO 4.3 % (0-6); IMMATURE GRAN ABSOLUTE AUTO 0.00 10^3/uL (0.00-0.49); IMMATURE GRAN PERCENT AUTO 0.0 % (0.0-4.9); LYMPHOCYTES ABSOLUTE AUTO 1.27 10^3/uL (0.60-5.00); LYMPHOCYTES PERCENT AUTO 30.1 % (24-44); MONOCYTES ABSOLUTE AUTO 0.35 10^3/uL (0.00-1.50); MONOCYTES PERCENT AUTO 8.3 % (0-10); NEUTROPHILS ABSOLUTE AUTO 2.38 x10^3/uL (1.80-8.00); NEUTROPHILS PERCENT AUTO 56.4 % (41-71); PLATELET COUNT,PLT 83 10^3/uL (150-400); RED BLOOD CELL COUNT 4.57 x10^6/uL (4.00-5.50); WHITE BLOOD CELL COUNT,WBC 4.2 10^3/uL (4.0-11.0)
[2025-05-31 03:10] LABS: ALANINE AMINOTRANSFERASE,ALT 52.0 U/L (12-78); ASPARTATE AMNIOTRANSFERASE,AST 77.0 U/L (15-37); BILIRUBIN TOTAL 0.7 mg/dL (0.0-1.0); BLOOD UREA NITROGEN,BUN 24.0 mg/dL (7-18); CARBON DIOXIDE,CO2 26.0 mmol/L (21-32); CHLORIDE,CL 101.0 mEq/L (98-106); CREATININE 1.8 mg/dL (0.6-1.0); EST CRCL DRUG DOSING (CG) 26.06 mL/min; POTASSIUM,K 4.4 mEq/L (3.5-5.0); PROTEIN TOTAL,TP 6.9 g/dL (6.4-8.2); SODIUM,NA 137.0 mEq/L (136-145)
[2025-05-31 03:11] LABS: ESTIMATED GFR 29.0 mL/min (>=60); GLUCOSE RANDOM 526.0 mg/dL (75-99)
[2025-05-31] MEDS ORDERED: 50% Dextrose in Water 50 ML Syringe IVPUSH PRN ×3 (03:17→10:22)
[2025-05-31] MEDS: Sodium Chloride 0.9% 10 ML Syringe FLUSH PRN (03:23)
[2025-05-31] MEDS: Insulin Regular, Human 100 Units/ML 10 ML Vial SUBCUT STA ×2 (03:28→05:00)
[2025-05-31] MEDS: Diphtheria,Pertussis(Acell),Tetanus Vaccine 0.5 ML Syringe IM ONE (03:30)
[2025-05-31] MEDS ORDERED: Betamethasone Dipropionate/Clotrimazole 0.05-1% Crm 15 GM Tube TOP PRN ×2 (05:00→05:43)
[2025-05-31] MEDS ORDERED: Ondansetron 4 MG/2 ML SDV IV PRN (05:01)
[2025-05-31] MEDS ORDERED: Ondansetron 4 MG Tab.DIS PO PRN (05:01)
[2025-05-31 07:31] LABS: ALANINE AMINOTRANSFERASE,ALT 51.0 U/L (12-78); ASPARTATE AMNIOTRANSFERASE,AST 71.0 U/L (15-37); BILIRUBIN TOTAL 0.6 mg/dL (0.0-1.0); BLOOD UREA NITROGEN,BUN 20.0 mg/dL (7-18); CARBON DIOXIDE,CO2 22.0 mmol/L (21-32); CHLORIDE,CL 105.0 mEq/L (98-106); CREATININE 1.4 mg/dL (0.6-1.0); EST CRCL DRUG DOSING (CG) 33.5 mL/min; POTASSIUM,K 4.1 mEq/L (3.5-5.0); PROTEIN TOTAL,TP 6.6 g/dL (6.4-8.2); SODIUM,NA 137.0 mEq/L (136-145)
[2025-05-31 07:34] LABS: BASOPHILS ABSOLUTE AUTO 0.03 10^3/uL (0.00-0.50); BASOPHILS PERCENT AUTO 0.8 % (0-1); EOSINOPHILS ABSOLUTE AUTO 0.10 10^3/uL (0.00-1.50); EOSINOPHILS PERCENT AUTO 2.5 % (0-6); IMMATURE GRAN ABSOLUTE AUTO 0.00 10^3/uL (0.00-0.49); IMMATURE GRAN PERCENT AUTO 0.0 % (0.0-4.9); LYMPHOCYTES ABSOLUTE AUTO 1.24 10^3/uL (0.60-5.00); LYMPHOCYTES PERCENT AUTO 31.6 % (24-44); MONOCYTES ABSOLUTE AUTO 0.26 10^3/uL (0.00-1.50); MONOCYTES PERCENT AUTO 6.6 % (0-10); NEUTROPHILS ABSOLUTE AUTO 2.30 x10^3/uL (1.80-8.00); NEUTROPHILS PERCENT AUTO 58.5 % (41-71); PLATELET COUNT,PLT 86 10^3/uL (150-400); RED BLOOD CELL COUNT 4.37 x10^6/uL (4.00-5.50); WHITE BLOOD CELL COUNT,WBC 3.9 10^3/uL (4.0-11.0)
[2025-05-31] MEDS: Lactulose Soln 10 GM/15 ML 30 ML UD Cup PO SCH ×2 (07:37→19:22)
[2025-05-31 07:38] LABS: ESTIMATED GFR 40.0 mL/min (>=60); GLUCOSE RANDOM 339.0 mg/dL (75-99)
[2025-05-31] MEDS: buPROPion 150 MG Tab.ER PO SCH (07:38)
[2025-05-31] MEDS ORDERED: Non-Formulary Medication 1 Each (Insulin Aspart 100 UNIT/ML Pen) SUBCUT SCH (08:00)
[2025-05-31] MEDS ORDERED: Insulin Glarg,Human.Rec.Analog 100 Unit/ML 10 ML Vial SUBCUT SCH (08:00)
[2025-05-31] MEDS ORDERED: Non-Formulary Medication 1 Each (Pregabalin [Pregabalin] 75 MG Capsule) PO SCH (08:00)
[2025-05-31] MEDS: Fluticasone NASAL Spray 16 GM Bottle NAS SCH (08:59)
[2025-05-31] MEDS: Insulin Glarg,Human.Rec.Analog 100 Unit/ML 10 ML Vial SUBCUT SCH ×2 (10:49→19:26)
[2025-05-31] MEDS: BROMFENAC 0.075% EYERT SCH (12:17)
[2025-05-31] MEDS: PREDNISOLONE EYERT SCH (12:17)
[2025-05-31] MEDS: MOXIFLOXACIN EYERT SCH (12:17)
[2025-06-01 08:07] LABS: ALANINE AMINOTRANSFERASE,ALT 39.0 U/L (12-78); ASPARTATE AMNIOTRANSFERASE,AST 47.0 U/L (15-37); BILIRUBIN TOTAL 0.6 mg/dL (0.0-1.0); BLOOD UREA NITROGEN,BUN 15.0 mg/dL (7-18); CARBON DIOXIDE,CO2 25.0 mmol/L (21-32); CHLORIDE,CL 108.0 mEq/L (98-106); CREATININE 1.2 mg/dL (0.6-1.0); EST CRCL DRUG DOSING (CG) 39.09 mL/min; GLUCOSE RANDOM 194.0 mg/dL (75-99); POTASSIUM,K 3.7 mEq/L (3.5-5.0); PROTEIN TOTAL,TP 6.1 g/dL (6.4-8.2); SODIUM,NA 142.0 mEq/L (136-145)
[2025-06-01 08:08] LABS: ESTIMATED GFR 48.0 mL/min (>=60)
[2025-06-01 08:16] LABS: BASOPHILS ABSOLUTE AUTO 0.03 10^3/uL (0.00-0.50); BASOPHILS PERCENT AUTO 0.9 % (0-1); EOSINOPHILS ABSOLUTE AUTO 0.16 10^3/uL (0.00-1.50); EOSINOPHILS PERCENT AUTO 4.6 % (0-6); IMMATURE GRAN ABSOLUTE AUTO 0.02 10^3/uL (0.00-0.49); IMMATURE GRAN PERCENT AUTO 0.6 % (0.0-4.9); LYMPHOCYTES ABSOLUTE AUTO 1.44 10^3/uL (0.60-5.00); LYMPHOCYTES PERCENT AUTO 41.3 % (24-44); MONOCYTES ABSOLUTE AUTO 0.25 10^3/uL (0.00-1.50); MONOCYTES PERCENT AUTO 7.2 % (0-10); NEUTROPHILS ABSOLUTE AUTO 1.59 x10^3/uL (1.80-8.00); NEUTROPHILS PERCENT AUTO 45.4 % (41-71); PLATELET COUNT,PLT 82 10^3/uL (150-400); RED BLOOD CELL COUNT 4.15 x10^6/uL (4.00-5.50); WHITE BLOOD CELL COUNT,WBC 3.5 10^3/uL (4.0-11.0)
== END 2025-06-01 11:20 | disposition home or self-care (01) ==
LOC: CC.ED 02:22 → UNDOADMOB 03:49 → CC.MS 03:49 → UNDOADMOB 04:37 → CC.MS 04:37
PROVIDERS: ADMIT Nurse Practitioner Family; ATTEND Nurse Practitioner Family
DX: S00.01XA Abrasion of scalp, initial encounter (principal); S00.81XA Abrasion of other part of head, initial encounter; E11.65 Type 2 diabetes mellitus with hyperglycemia; Z79.4 Long term (current) use of insulin; Z88.8 Allergy status to other drugs, medicaments and biological substances; Z79.899 Other long term (current) drug therapy; Z79.890 Hormone replacement therapy; W06.XXXA Fall from bed, initial encounter
CPT/HCPCS: 36415; 73030-RT; 73200-RT; 80053; 82947; 83735; 85025; 86140; 90715; 97110-GP; 99223; 99238; A9270-GY; J1815-GY; J7030